=== PATIENT | male | born 1950 | race Caucasian/White ===

== ENCOUNTER → 2017-10-24 | Outpatient (CLI) | payer MEDICARE ==
[~2017-10-24] MED LIST: AMOXICILLIN500 MG PO; ASPIRIN81 M1 PO; AUGMENTIN 875 M1 TAB PO; AUGMENTIN 875875 MG PO; B-1100 MG PO; BACTROBAN OINT22 GM PO; FOLIC ACID1 MG PO; HYDROCODONE BIT1 T11 PO; LIBRIUM10 MG PO; LIBRIUM5 MG PO; LOPRESSOR25 MG PO; MOTRIN800 MG PO; MULTIPLE VITAMI1 CAP PO; NATURE'S BLEND F1 MG PO; NKHM; NORFLEX100 MG PO; PROTONIX40 MG PO; THERA TABS1 TAB PO; TRAMADOL HCL50 MG PO; VITAMIN B-11 TAB PO
--- NOTE | ~2017-10-24 | EKG ---
[place], [place] ELECTROCARDIOGRAM REPORT NAME: VALENTINE MAXWELL UNIT #: [id number] ROOM: DOCTOR: EPIPHANY DRAFT REPORT BIRTHDATE: [birth year] [facility] Test Date: 2017-10-24 Test Time: 09:19:48 Pat Name: VALENTINE MAXWELL Department: Room: Gender: M Gastroenterology Technician: : 1950 Requested By: KIEL PETTY Order Number: [id number] Reading MD: Drew Vargas MD Measurements Intervals [place] Rate: 113 P: [place]: QRS: -82 QRSD: 92 T: 67 QT: 363 QTc: 498 Interpretive Statements Atrial fibrillation Left anterior fascicular block Low voltage, extremity leads Minimal ST depression, anterolateral leads Borderline prolonged QT interval Electronically Signed On 10-24-2017 10:28:17 PDT by Drew Vargas MD CM:EKGRPT:ELECTROCARDIOGRAM REPORT 1028 KIEL PETTY MD EPIPHANY DRAFT REPORT KIEL PETTY MD
== END | disposition home or self-care (01) ==
LOC: CARD 08:47
DX: M79.89 Other specified soft tissue disorders (principal)

== ENCOUNTER → 2017-10-30 | Day surgery (SDC) | payer MEDICARE ==
[~2017-10-30] VITALS: Ht 180.3 cm; Wt 65.8 kg
[2017-10-30 09:25] VITALS: BP 117/89
[2017-10-30 09:40] VITALS: BP 124/89
[2017-10-30 09:55] VITALS: BP 122/92
== END | disposition home or self-care (01) ==
LOC: SDC 10-25 08:45
DX: M79.89 Other specified soft tissue disorders (principal); M10.9 Gout, unspecified; I48.91 Unspecified atrial fibrillation; K21.9 Gastro-esophageal reflux disease without esophagitis; Z87.11 Personal history of peptic ulcer disease; Z87.891 Personal history of nicotine dependence; Z80.9 Family history of malignant neoplasm, unspecified

== ENCOUNTER 2017-12-08 07:20 | Inpatient (IN) | payer MEDICARE ==
[~2017-12-08] VITALS: Ht 177.8 cm; Wt 60.1 kg
--- NOTE | ~2017-12-08 | O ---
[place], [place] OPERATIVE NOTE NAME: VALENTINE MAXWELL UNIT #: [id number] ROOM: 425 DOCTOR: SHAISTA FERNANDEZ,ANGELO BIRTHDATE: [birth year] DOS: 12/10/2017 GASTROENDOSCOPIC REPORT HISTORY: The patient has presented with anemia, undergoing investigation of GI bleed. PROCEDURE: Today's procedure part of investigation is colonoscopy plus photographic series. PREMEDICATION: Propofol. SCOPE: Olympus forward-viewing colonoscope 10L video. REPORT: After putting the patient in left lateral position and application of lubricant to the scope, the scope was introduced, thereafter under direct visualization passed through the length of colon without difficulty. Diverticulosis was appreciated. Base of the cecum explored, appendiceal orifice identified, photographed. Scope was gradually withdrawn from ascending, transverse, descending colon. The patient extubated, tolerated procedure well. IMPRESSION: Diverticulosis. No evidence of ischemia, no evidence of bleed from lower GI tract. PLAN AND DISCUSSION: We are going to proceed with upper GI management for peptic ulcer disease. The patient needs extensive counseling to abstain from alcohol that he is using at least a 6-pack beer per day. Thank you very much indeed. ANGELO NOONAN MD CM:OPRECORD:OPERATIVE NOTE 1758 1824 ANGELO NOONAN MD 12/10/17 1821 interface
--- NOTE | ~2017-12-08 | O ---
[place], [place] OPERATIVE NOTE NAME: VALENTINE MAXWELL UNIT #: [id number] ROOM: 425 DOCTOR: SHAISTA FERNANDEZ,ANGELO BIRTHDATE: [birth year] DOS: 12/10/2017 GASTROENDOSCOPIC REPORT HISTORY: This is a 67-year-old patient who has presented with a chief complaint of hematemesis, GI bleed, aggressive alcohol consumer, on aspirin daily as well. PROCEDURE 1: Today's procedure part of investigation is panendoscopy and colonoscopy. PREMEDICATION: Propofol. SCOPE: Olympus forward-viewing gastroscope Q10 video. REPORT: After putting the patient in left lateral position and application of lubricant to the scope, the scope was introduced, thereafter under direct visualization advanced through the length of esophagus without difficulty. Trace of esophageal varicosity was noticed. Gastric pouch was entered, hiatal hernia seen, gastritis appreciated, and a linear 2 cm x 0.5 cm width ulcer in the antrum was identified, biopsy from distant margin of which was obtained. Duodenum associated with duodenitis and a small duodenal ulcer. Photographed. Scope was gradually withdrawn. The patient extubated, tolerated the procedure well. IMPRESSION: Trace esophageal varicosity, hiatal hernia 2.5 cm in length, antral ulceration, a 2 cm x 0.5 cm small duodenal ulcer, duodenitis, gastritis. PLAN AND DISCUSSION: Protonix 40 mg daily. We are going to stop aspirin. We are going to feed him GERD diet. I am going to proceed with advising him to abstain from alcoholic beverages if possible and will evaluate colonoscopy today. ANGELO NOONAN MD CM:OPRECORD:OPERATIVE NOTE 1758 19 ANGELO NOONAN MD 12/10/171817 interface
--- NOTE | ~2017-12-08 | EKG ---
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
--- NOTE | ~2017-12-08 | CON ---
[place], [place] REPORT OF CONSULTATION NAME: VALENTINE MAXWELL UNIT #: [id number] ROOM: 425 DOCTOR: SHAISTA FERNANDEZANGELO BIRTHDATE: [birth year] DOS: 12/10/2017 GASTROENDOSCOPIC CONSULTATION REPORT HISTORY OF PRESENT ILLNESS: This is a 67-year-old gentleman who has presented with hematemesis history, abdominal pain, cramp. His H and H initially was 11 and 35, macrocytic indices, white blood cell; however, was normal. INR was 1.0. Comprehensive metabolic panel, electrolyte balanced. Liver function test, abnormal. GOT, GPT 44 and 26. Alkaline phosphatase 90, total bilirubin 1.1. Chest x-ray was obtained. Emphysematous changes were noticed. His hemoglobin A1c was 4.1. PAST MEDICAL HISTORY: Associated with GERD, essential hypertension, chronic alcoholism, atrial fibrillation, peptic ulcer disease. PAST SURGICAL HISTORY: Lipoma. SOCIAL HISTORY: Nonsmoker and heavy alcohol consumer. FAMILY HISTORY: Noncontributory. ALLERGIES: No known medications. MEDICATIONS: Medication at home 81 mg of aspirin. REVIEW OF SYSTEMS: HEENT: Denies double vision, blurred vision. RESPIRATORY: Denies acute shortness of breath, chronically short of breath, however. CARDIOVASCULAR: Denies chest pain. DIGESTIVE SYSTEM: Hematemesis and anemia. PHYSICAL EXAMINATION: VITAL SIGNS: Stable. HEENT: Head normocephalic, nontraumatic. Mouth and buccal mucosa benign. NECK: Supple, no thyromegaly, no cervical lymphadenopathy. CHEST: Symmetric anatomy, COPD pattern. HEART: Irregular irregularity consistent with atrial fibrillation. ABDOMEN: Soft. No hepato-organomegaly, slightly obese. No pulsatile mass. EXTREMITIES: No cyanosis, no pedal edema. NEUROLOGIC: Alert, oriented to time, place, person. No asterixis. No encephalopathy. 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 OTHER ADJUNCTIVE DIAGNOSES: As outlined in past medical, surgical history. [place], [place] REPORT OF CONSULTATION NAME: VALENTINE MAXWELL UNIT #: [id number] ROOM: 425 DOCTOR: SHAISTA FERNANDEZ,ANGELO BIRTHDATE: [birth year] PLAN AND DISCUSSION: EGD and colonoscopy today. ANGELO NOONAN MD CM:CONSTR:REPORT OF CONSULTATION 1736 12/11/17 0104 interface
[2017-12-08 07:24] VITALS: BP 131/83
[2017-12-08 07:50] LABS: BASO % 0.3 % (0.0-1.0); EOS # 0.1 10*3/uL (0.0-0.4); EOS % 1.2 % (1.0-4.0); HEMATOCRIT 33.5 % (42.0-52.0); HEMOGLOBIN 11.4 g/dl (14.0-18.0); LYMPH % 11.3 % (27.0-41.0); MEAN CELL VOLUME 102.4 fl (80.0-94.0); MEAN CORPUSCULAR HGB 34.9 pg (27.0-31.0); MEAN PLATELET VOLUME 11.2 fl (9.6-12.3); MONO # 1.4 10*3/uL (0.1-1.0); MONO % 16.7 % (3.0-9.0); NEUT # 6.1 10*3/uL (2.3-7.9); NEUT % 70.2 % (47.0-73.0); PLATELET COUNT AUTOMATED 180 10*3/uL (130-400); RED BLOOD COUNT 3.27 10*6/uL (4.50-5.90); RED CELL DISTRI WIDTH 11.5 % (0-14.5); WHITE BLOOD COUNT 8.6 10*3/uL (4.8-10.8)
[2017-12-08 07:59] LABS: ACT PARTIAL THROMBO TIME 26.3 SECONDS (20.8-31.5)
[2017-12-08 08:06] LABS: ALBUMIN 2.5 gm/dl (3.1-4.5); ALKALINE PHOSPHATASE 90 U/L (45-117); BUN 14 mg/dl (7-24); CHLORIDE 102 mmol/L (98-107); CREATININE 0.83 mg/dL (0.70-1.30); POTASSIUM 4.5 mmol/L (3.5-5.1); SGOT/AST 44 IU/L (3-35); SGPT/ALT 26 U/L (12-78); SODIUM 137 mmol/L (136-145); TOTAL PROTEIN 6.8 gm/dL (6.4-8.2)
[2017-12-08 08:13] LABS: ETHYL ALCOHOL < 3.0 mg/dl (<3)
[2017-12-08 08:55] VITALS: BP 118/83
[2017-12-08 12:00] VITALS: BP 140/76
[2017-12-08 16:00] VITALS: BP 130/88
[2017-12-08 20:00] VITALS: BP 106/75
[2017-12-09] VITALS: BP 113/70
[2017-12-09 07:05] LABS: HEMATOCRIT 31.8 % (42.0-52.0); HEMOGLOBIN 10.4 g/dl (14.0-18.0)
[2017-12-09 07:14] LABS: BASO % 0.4 % (0.0-1.0); EOS # 0.1 10*3/uL (0.0-0.4); EOS % 1.6 % (1.0-4.0); HEMATOCRIT 31.8 % (42.0-52.0); HEMOGLOBIN 10.4 g/dl (14.0-18.0); LYMPH # 1.3 10*3/uL (1.3-4.4); LYMPH % 26.7 % (27.0-41.0); MEAN CORPUSCULAR HGB 34.7 pg (27.0-31.0); MEAN CORPUSCULAR HGB CONC 32.7 g/dl (33.0-37.0); MONO # 0.7 10*3/uL (0.1-1.0); MONO % 14.7 % (3.0-9.0); NEUT # 2.8 10*3/uL (2.3-7.9); NEUT % 56.4 % (47.0-73.0); PLATELET COUNT AUTOMATED 151 10*3/uL (130-400); RED CELL DISTRI WIDTH 11.6 % (0-14.5); WHITE BLOOD COUNT 4.9 10*3/uL (4.8-10.8)
[2017-12-09 07:45] LABS: BUN 7 mg/dl (7-24); CHLORIDE 108 mmol/L (98-107); CHOLESTEROL 126 mg/dL (<200); CREATININE 0.72 mg/dL (0.70-1.30); FREE T4 1.39 ng/dl (0.76-1.46); HDL CHOLESTEROL 65 mg/dl (40-60); LDL CHOLESTEROL 49 mg/dL (9-159); PHOSPHOROUS 1.6 mg/dL (2.5-4.9); SODIUM 141 mmol/L (136-145); TRIGLYCERIDES 62 mg/dl (<150); VLDL CHOLESTEROL 12 mg/dL (6-40)
[2017-12-09 07:52] LABS: POTASSIUM 3.2 mmol/L (3.5-5.1)
[2017-12-09 08:00] VITALS: BP 108/68
[2017-12-09 12:00] VITALS: BP 105/62
[2017-12-09 16:00] VITALS: BP 105/76
[2017-12-09 20:00] VITALS: BP 117/75
[2017-12-10] VITALS (8 sets, daily range): BP systolic 98–131; BP diastolic 61–94
[2017-12-10 06:48] LABS: BASO % 0.5 % (0.0-1.0); EOS # 0.1 10*3/uL (0.0-0.4); EOS % 3.2 % (1.0-4.0); HEMATOCRIT 26.7 % (42.0-52.0); HEMOGLOBIN 9.1 g/dl (14.0-18.0); LYMPH # 1.2 10*3/uL (1.3-4.4); LYMPH % 28.6 % (27.0-41.0); MEAN CORPUSCULAR HGB 36.1 pg (27.0-31.0); MEAN CORPUSCULAR HGB CONC 34.1 g/dl (33.0-37.0); MEAN PLATELET VOLUME 12.1 fl (9.6-12.3); MONO # 0.7 10*3/uL (0.1-1.0); MONO % 16.5 % (3.0-9.0); NEUT # 2.1 10*3/uL (2.3-7.9); PLATELET COUNT AUTOMATED 134 10*3/uL (130-400); RED BLOOD COUNT 2.52 10*6/uL (4.50-5.90); RED CELL DISTRI WIDTH 11.4 % (0-14.5); WHITE BLOOD COUNT 4.1 10*3/uL (4.8-10.8)
[2017-12-10 07:00] LABS: BUN 3 mg/dl (7-24); CHLORIDE 111 mmol/L (98-107); CREATININE 0.63 mg/dL (0.70-1.30); SODIUM 141 mmol/L (136-145)
[2017-12-11] VITALS: BP 124/88
[2017-12-11 08:00] VITALS: BP 132/83
[2017-12-11 09:07] LABS: BASO % 0.5 % (0.0-1.0); EOS # 0.1 10*3/uL (0.0-0.4); EOS % 2.4 % (1.0-4.0); HEMATOCRIT 28.9 % (42.0-52.0); HEMOGLOBIN 9.5 g/dl (14.0-18.0); MEAN CELL VOLUME 106.6 fl (80.0-94.0); MEAN CORPUSCULAR HGB 35.1 pg (27.0-31.0); MEAN CORPUSCULAR HGB CONC 32.9 g/dl (33.0-37.0); MEAN PLATELET VOLUME 11.4 fl (9.6-12.3); MONO # 0.7 10*3/uL (0.1-1.0); MONO % 16.2 % (3.0-9.0); NEUT # 2.4 10*3/uL (2.3-7.9); NEUT % 57.7 % (47.0-73.0); PLATELET COUNT AUTOMATED 169 10*3/uL (130-400); RED BLOOD COUNT 2.71 10*6/uL (4.50-5.90); RED CELL DISTRI WIDTH 11.5 % (0-14.5); WHITE BLOOD COUNT 4.2 10*3/uL (4.8-10.8)
[2017-12-11 09:22] LABS: ALBUMIN 2.2 gm/dl (3.1-4.5); ALKALINE PHOSPHATASE 62 U/L (45-117); BUN 2 mg/dl (7-24); CHLORIDE 111 mmol/L (98-107); CREATININE 0.65 mg/dL (0.70-1.30); POTASSIUM 3.3 mmol/L (3.5-5.1); SGOT/AST 49 IU/L (3-35); SGPT/ALT 29 U/L (12-78); SODIUM 140 mmol/L (136-145)
[2017-12-11 10:43] LABS: PHOSPHOROUS 2.5 mg/dL (2.5-4.9)
[2017-12-11 12:00] VITALS: BP 113/74
[2017-12-11] MEDS ORDERED: TOPROL XL50 M1 PO (12:03)
[2017-12-11] MEDS ORDERED: XARELTO20 M1 PO (12:03)
[2017-12-11] MEDS ORDERED: VITAMIN D-32000 UNIT PO (12:03)
[2017-12-11] MEDS ORDERED: Carafate1 GM PO (12:03)
[2017-12-11] MEDS ORDERED: PROTONIX40 M1 PO (12:41)
== END 2017-12-11 13:30 | disposition home or self-care (01) | DRG 377 ==
LOC: ED 07:20 → 4E 08:35 → EDHOLD 08:35 → 4E 08:41
PROVIDERS: Emergency Medicine; Internal Medicine; Internal Medicine Gastroenterology; Registered Nurse
PROC: 0DJD8ZZ Inspection of Lower Intestinal Tract, Via Natural or Artificial Opening Endoscopic (ICD-10-PCS; principal; 2017-12-10)
PROC: 0DB68ZX Excision of Stomach, Via Natural or Artificial Opening Endoscopic, Diagnostic (ICD-10-PCS; principal; 2017-12-10)
DX: K29.71 Gastritis, unspecified, with bleeding (principal); E43 Unspecified severe protein-calorie malnutrition; I48.92 Unspecified atrial flutter; Z68.1 Body mass index [BMI] 19.9 or less, adult; K21.9 Gastro-esophageal reflux disease without esophagitis; I10 Essential (primary) hypertension; I48.91 Unspecified atrial fibrillation; K44.9 Diaphragmatic hernia without obstruction or gangrene; F10.10 Alcohol abuse, uncomplicated; R00.0 Tachycardia, unspecified; D53.9 Nutritional anemia, unspecified; R74.0 Nonspecific elevation of levels of transaminase and lactic acid dehydrogenase [LDH]; D53.1 Other megaloblastic anemias, not elsewhere classified; K27.9 Peptic ulcer, site unspecified, unspecified as acute or chronic, without hemorrhage or perforation; E83.51 Hypocalcemia; K70.9 Alcoholic liver disease, unspecified; I85.00 Esophageal varices without bleeding; K25.9 Gastric ulcer, unspecified as acute or chronic, without hemorrhage or perforation; K26.9 Duodenal ulcer, unspecified as acute or chronic, without hemorrhage or perforation; K29.80 Duodenitis without bleeding; K57.30 Diverticulosis of large intestine without perforation or abscess without bleeding; D50.0 Iron deficiency anemia secondary to blood loss (chronic); Z79.82 Long term (current) use of aspirin; Z87.11 Personal history of peptic ulcer disease; Z80.1 Family history of malignant neoplasm of trachea, bronchus and lung

== ENCOUNTER 2017-12-12 22:02 | Inpatient (IN) | payer MEDICARE ==
[~2017-12-12] VITALS: Ht 180.3 cm; Wt 50.5 kg
--- NOTE | ~2017-12-12 | EKG ---
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
--- NOTE | ~2017-12-12 | CON ---
[place], [place] REPORT OF CONSULTATION [id number] UNIT #: [id number] ROOM: 407 DOCTOR: ISABEL BARNES MDDENA BIRTHDATE: [birth year] DOS: 12/15/2017 PULMONARY CONSULTATION, EVALUATION, AND MANAGEMENT CONSULTATION REQUESTED BY: Hospitalist service. REASON FOR CONSULTATION: For the assessment of symptoms of shortness of breath. HISTORY OF PRESENT ILLNESS: This is a 67-year-old white male patient who had been recently admitted to the hospital and managed with acute GI bleeding as well as atrial fibrillation with rapid ventricular response. The patient was discharged home on 12/11/2017. He presented back to the hospital on 12/13/2017. The patient reported symptoms of having increased edema of the lower extremity, which has been occurring for the past 24 hours. Symptoms have been noted worsened. He came into the Emergency Room for further assessment. The patient does report symptoms of shortness of breath that occurs with exertion. Denies symptoms of chest pain with that. He does have a cough. The patient with a clear sputum expectoration, also reported wheezing. The patient has been admitted to the hospital for further assessment and medical management. He has been reporting reduction in respiratory symptoms since hospitalization. The CT scan of chest was obtained that was reported findings of pleural effusion. REVIEW OF SYSTEMS: CONSTITUTIONAL SYMPTOMS: Fatigue and tiredness noted without any symptoms of fever or chills. EYES: Denies any burning, redness, or tenderness. EAR, NOSE, THROAT SYMPTOMS: Denies sore throat, hoarseness, otalgia, postnasal drainage or epistaxis. CARDIOVASCULAR: Denies angina pain, edema, or pain in lower extremities. At this time, the extremity of edema, which has noted severe currently resolved completely since hospitalization in the last 48 hours. GASTROINTESTINAL: No dysphagia, nausea, vomiting, diarrhea, abdominal pain, hematemesis, melena, or hematochezia. SKIN: Denied symptoms of lesions or rashes. MUSCULOSKELETAL SYMPTOMS: Denies any other symptoms of any joint pain, redness, or tenderness. CENTRAL NERVOUS SYSTEM: No dizziness, headache, diplopia, or syncopal episodes. Remaining systems were reviewed with the patient, they were noted all negative. PAST MEDICAL HISTORY: Known with the recent hospitalization, the patient with: 1. Atrial fibrillation, rapid ventricular response. 2. Recent gastrointestinal bleeding as well. 3. Gastroesophageal reflux. 4. Atrial fibrillation, which is chronic. 5. Peptic ulcer disease. 6. Megaloblastic anemia. The patient's acute nature with recent EGD. 7. Excision of lipoma from the back. SOCIAL HISTORY: The patient lives at home. He has been noted with the use of [place], [place] REPORT OF CONSULTATION NAME: VALENTINE MAXWELL UNIT #: [id number] ROOM: 407 DOCTOR: ISABEL BARNES MD,DENA BIRTHDATE: [birth year] alcohol in the form of the beer. Noted nonsmoker. He is single, stated not . 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 FAMILY HISTORY: History about dad was unknown. Mother with complication related to lung cancer. HOME MEDICATIONS: Listed use of metoprolol tartrate, Xarelto, Carafate 2 grams at bedtime, vitamin D, and other p.r.n. medication [id number]. CURRENT MEDICATIONS: Administered noted use of allopurinol, naproxen, vitamin D, Protonix, DuoNeb, Carafate, metoprolol succinate, lorazepam, and other p.r.n. medications administered. DRUG ALLERGY HISTORY: Noted no known drug allergies. PHYSICAL EXAMINATION: GENERAL: This is a 67-year-old white male patient who has been currently noted awake and alert, sitting on his bed without acute distress. Height of 5 feet 11 inches, weight 141 pounds, BMI 19.6. VITAL SIGNS: Normal temperature, respiratory rate 18-20, heart rate of 61-109, blood pressure of 96/69-106/57. Pulse oxygen saturation on room air 98% saturation. HEENT: Examination shows loss of muscle mass for mastication. Head was atraumatic. Eyes nonicterus. CARDIOVASCULAR: S1, S2 is audible. LUNGS: Noted moderate general reduction in breath sounds without any wheeze or crackles. ABDOMEN: Soft, flat, nontender, and bowel sounds present. EXTREMITIES: At this time, no edema, clubbing, cyanosis, or muscle mass loss noted in the extremities. SKIN: No lesions or rashes. CENTRAL NERVOUS SYSTEM: Cranial nerves 2-12 intact. LABORATORY DATA: CMP this morning was noted normal electrolytes. Total protein of 5.5 and albumin of 2.0. Vancomycin trough level yesterday noted at 14. CBC that was done on 12/15/2017, WBC count 4.4, hemoglobin 9.3, hematocrit 27.0, platelet count of 211,000, MCV 103. The CBC on 12/13/2017, WBC count 5.1 at that time. B12 and folic acid level noted normal. RADIOLOGY DATA: Reviewed. The chest x-ray that was done on 12/12/2017 was reviewed, shows mild haziness in the left lower lobe. Otherwise, no acute abnormalities. Chest x-ray showed possibility to consideration of adjuvant area of atelectasis or pleural fluid. Chest x-ray that was done on 12/08/2017 shows changes of COPD and hyperinflation changes. CT scan of the chest was also done on 12/13/2017 shows no acute pulmonary infiltration visible. A small left pleural fluid was noted with an area of compression atelectasis. IMPRESSION: The lack of the IV contrast does limit the mediastinal structure review; however, there was no gross visible lymph node enlargement was seen. [place], [place] REPORT OF CONSULTATION NAME: VALENTINE MAXWELL UNIT #: [id number] ROOM: 407 DOCTOR: ISABEL BARNES MD,[facility] BIRTHDATE: [birth year] IMPRESSION: 1. The patient who has been currently admitted to the hospital with symptoms and finding noted consistent with possible recurrent congestive heart failure with a small left pleural fluid noted with area of atelectasis. There was no clinical radiologic evidence of pneumonia suspected. Etiology of pleural fluid was not noted clear, may be related to congestive heart failure with diastolic dysfunction. 2. The patient with a recent gastrointestinal bleeding, which has been treated appropriately with the medication with stable hemoglobin happen. 3. Macrocytosis was also noted leukopenia, most likely to the chronic alcohol use. PLAN OF TREATMENT: Physical examination was noted pretty benign at this time. I will order another chest x-ray done tomorrow to reassess the pleural fluid. The pleural fluid is large. Thoracentesis could be done in case of that. In the meantime, other plan of therapy and care to be continued as in progress. Usual care, other supportive plan and management of therapies. Additional changes in the treatment recommended based on progression of the illness. DENA HALL MD CM:CONSTR:REPORT OF CONSULTATION 1757 12/15/17 2130 interface
--- NOTE | ~2017-12-12 | PR ---
[place], [place] PROGRESS NOTE NAME[id number] UNIT #: [id number] ROOM: 407 DOCTOR: ISABEL BARNES MD,DENA BIRTHDATE: [birth year] DOS: 12/16/2017 PULMONARY PROGRESS NOTE SUBJECTIVE: The patient has been noted comfortable at this time. Denies symptoms of chest pain, coughing or sputum expectoration and edema of the lower extremity continued to resolve progressively. He denies symptoms of abdominal pain, nausea or vomiting. The GI symptoms has been improving. The patient was planned for a possible discharge home today. OBJECTIVE: VITAL SIGNS: Normal temperature, respiratory rate 18, heart rate 96, blood pressure 116/72. The pulse oxygen saturation of the patient on room air was 100% saturation. HEENT: Examination shows head was atraumatic. Eyes nonicterus. NECK: Supple. CARDIOVASCULAR: S1, S2 is audible. LUNGS: The patient was noted without any wheezing or crackles. Lungs were noted clear bilaterally. ABDOMEN: Soft, nontender, bowel sounds present. EXTREMITIES: Without any acute edema. DIAGNOSTIC STUDIES: Chest x-ray done this morning for the patient noted resolution of previous left lower lobe atelectasis and small pleural effusion. IMPRESSION: The patient with resolving congestive heart failure with the pleural fluid small, at this time resolved with a followup chest x-ray. PLAN OF MANAGEMENT: The patient could be discharged home on medication, diuretics and other medical management as recommended by the primary care attending. DENA HALL MD CM:RODRICK 1226 1542 DENA BARNES MD 12/16/17 1540 interface
[~2017-12-12 22:02] MED LIST changes: +Carafate1 GM PO; +PROTONIX40 M1 PO; +TOPROL XL50 M1 PO; +VITAMIN D-32000 UNIT PO; +XARELTO20 M1 PO
[2017-12-12 22:08] VITALS: BP 117/79
[2017-12-12 23:06] LABS: BASO % 0.5 % (0.0-1.0); EOS # 0.1 10*3/uL (0.0-0.4); EOS % 1.4 % (1.0-4.0); HEMATOCRIT 30.1 % (42.0-52.0); HEMOGLOBIN 10.2 g/dl (14.0-18.0); LYMPH % 16.8 % (27.0-41.0); MEAN CELL VOLUME 104.2 fl (80.0-94.0); MEAN CORPUSCULAR HGB 35.3 pg (27.0-31.0); MEAN CORPUSCULAR HGB CONC 33.9 g/dl (33.0-37.0); MONO # 1.1 10*3/uL (0.1-1.0); MONO % 18.1 % (3.0-9.0); NEUT # 3.7 10*3/uL (2.3-7.9); PLATELET COUNT AUTOMATED 204 10*3/uL (130-400); RED BLOOD COUNT 2.89 10*6/uL (4.50-5.90); RED CELL DISTRI WIDTH 11.6 % (0-14.5); WHITE BLOOD COUNT 5.9 10*3/uL (4.8-10.8)
[2017-12-12 23:24] LABS: ALBUMIN 2.5 gm/dl (3.1-4.5); ALKALINE PHOSPHATASE 80 U/L (45-117); BUN 2 mg/dl (7-24); CHLORIDE 110 mmol/L (98-107); CREATININE 0.92 mg/dL (0.70-1.30); POTASSIUM 3.8 mmol/L (3.5-5.1); SGOT/AST 55 IU/L (3-35); SGPT/ALT 36 U/L (12-78); SODIUM 140 mmol/L (136-145); TOTAL PROTEIN 6.8 gm/dL (6.4-8.2)
[2017-12-12 23:25] LABS: ACT PARTIAL THROMBO TIME 27.1 SECONDS (20.8-31.5)
[2017-12-12 23:27] LABS: TROPONIN I < 0.015 ng/ml (<0.045)
[2017-12-13] VITALS (7 sets, daily range): BP systolic 101–136; BP diastolic 64–92
[2017-12-13 06:13] LABS: HEMATOCRIT 29.8 % (42.0-52.0); HEMOGLOBIN 10.2 g/dl (14.0-18.0); MEAN CELL VOLUME 102.1 fl (80.0-94.0); MEAN CORPUSCULAR HGB 34.9 pg (27.0-31.0); MEAN CORPUSCULAR HGB CONC 34.2 g/dl (33.0-37.0); MEAN PLATELET VOLUME 11.2 fl (9.6-12.3); PLATELET COUNT AUTOMATED 203 10*3/uL (130-400); RED BLOOD COUNT 2.92 10*6/uL (4.50-5.90); RED CELL DISTRI WIDTH 11.7 % (0-14.5); WHITE BLOOD COUNT 5.1 10*3/uL (4.8-10.8)
[2017-12-13 06:51] LABS: ALBUMIN 2.4 gm/dl (3.1-4.5); ALKALINE PHOSPHATASE 75 U/L (45-117); BUN 3 mg/dl (7-24); CHLORIDE 105 mmol/L (98-107); CREATININE 0.89 mg/dL (0.70-1.30); PHOSPHOROUS 3.6 mg/dL (2.5-4.9); SGOT/AST 41 IU/L (3-35); SGPT/ALT 32 U/L (12-78); SODIUM 138 mmol/L (136-145); TOTAL PROTEIN 6.5 gm/dL (6.4-8.2)
[2017-12-13 06:52] LABS: ACT PARTIAL THROMBO TIME 26.6 SECONDS (20.8-31.5); INTERNATIONAL NORM RATIO 1.1 (2.0-3.5)
[2017-12-13 06:58] LABS: FREE T4 1.26 ng/dl (0.76-1.46)
[2017-12-13 07:18] LABS: BASOPHILS 1 % (0-1); PLATELET SUFFICIENCY NORMAL (NORMAL); ROULEAUX SLIGHT; TOTAL CELLS COUNTED 100 #CELLS
[2017-12-13 07:45] LABS: VITAMIN D, 25-HYDROXY 14.1 ng/mL (30-100)
[2017-12-14 00:30] VITALS: BP 110/56
[2017-12-14 08:00] VITALS: BP 120/84
[2017-12-14 11:00] LABS: ALBUMIN 2.1 gm/dl (3.1-4.5); ALKALINE PHOSPHATASE 63 U/L (45-117); BUN 5 mg/dl (7-24); CHLORIDE 105 mmol/L (98-107); CREATININE 1.17 mg/dL (0.70-1.30); PHOSPHOROUS 2.9 mg/dL (2.5-4.9); SGOT/AST 19 IU/L (3-35); SGPT/ALT 22 U/L (12-78); SODIUM 140 mmol/L (136-145); TOTAL PROTEIN 5.9 gm/dL (6.4-8.2)
[2017-12-14 12:00] VITALS: BP 90/60
[2017-12-14 15:59] VITALS: BP 100/68
[2017-12-14 20:00] VITALS: BP 106/57
[2017-12-15] VITALS: BP 96/69
[2017-12-15 06:00] LABS: HEMOGLOBIN 9.3 g/dl (14.0-18.0); MEAN CELL VOLUME 103.8 fl (80.0-94.0); MEAN CORPUSCULAR HGB 35.8 pg (27.0-31.0); MEAN CORPUSCULAR HGB CONC 34.4 g/dl (33.0-37.0); PLATELET COUNT AUTOMATED 211 10*3/uL (130-400); WHITE BLOOD COUNT 4.4 10*3/uL (4.8-10.8)
[2017-12-15 06:20] LABS: BUN 5 mg/dl (7-24); CHLORIDE 107 mmol/L (98-107); CREATININE 0.89 mg/dL (0.70-1.30); PHOSPHOROUS 2.3 mg/dL (2.5-4.9); SGOT/AST 14 IU/L (3-35); SGPT/ALT 20 U/L (12-78); SODIUM 139 mmol/L (136-145); TOTAL PROTEIN 5.5 gm/dL (6.4-8.2)
[2017-12-15 06:21] LABS: ALKALINE PHOSPHATASE 53 U/L (45-117)
[2017-12-15 06:25] LABS: POTASSIUM 4.5 mmol/L (3.5-5.1)
[2017-12-15 07:24] LABS: BASOPHILS 1 % (0-1); TOTAL CELLS COUNTED 100 #CELLS
[2017-12-15 07:25] LABS: PLATELET SUFFICIENCY NORMAL (NORMAL)
[2017-12-15 12:00] VITALS: BP 78/56
[2017-12-15 16:00] VITALS: BP 92/54
[2017-12-15 20:00] VITALS: BP 92/58
[2017-12-16] VITALS: BP 96/59
[2017-12-16 08:00] VITALS: BP 108/68; BP 116/72
[2017-12-16] MEDS ORDERED: METOPROLOL SUCC25 M2 PO (08:29)
[2017-12-16] MEDS ORDERED: LASIX20 MG PO (08:30)
[2017-12-16] MEDS ORDERED: ALLOPURINOL100 MG PO (08:30)
== END 2017-12-16 11:01 | disposition home or self-care (01) | DRG 308 ==
LOC: ED 22:02 → EDHOLD 12-13 00:42 → 4E 12-13 00:42
PROVIDERS: Internal Medicine; Physician Assistant; Registered Nurse
DX: I48.92 Unspecified atrial flutter (principal); E43 Unspecified severe protein-calorie malnutrition; J90 Pleural effusion, not elsewhere classified; J98.11 Atelectasis; I11.0 Hypertensive heart disease with heart failure; D53.1 Other megaloblastic anemias, not elsewhere classified; D72.810 Lymphocytopenia; E87.8 Other disorders of electrolyte and fluid balance, not elsewhere classified; K27.9 Peptic ulcer, site unspecified, unspecified as acute or chronic, without hemorrhage or perforation; F10.20 Alcohol dependence, uncomplicated; K21.9 Gastro-esophageal reflux disease without esophagitis; E83.39 Other disorders of phosphorus metabolism; E88.09 Other disorders of plasma-protein metabolism, not elsewhere classified; I50.9 Heart failure, unspecified; I48.0 Paroxysmal atrial fibrillation; I95.0 Idiopathic hypotension; R00.0 Tachycardia, unspecified; Z79.899 Other long term (current) drug therapy; Z79.82 Long term (current) use of aspirin; Z80.1 Family history of malignant neoplasm of trachea, bronchus and lung

== ENCOUNTER 2018-03-11 13:22 | Inpatient (IN) | payer MEDICARE ==
[2018-03-11] VITALS (7 sets, daily range): BP systolic 98–135; BP diastolic 66–91
[~2018-03-11] VITALS: Ht 177.8 cm; Wt 61.0 kg
--- NOTE | ~2018-03-11 | EKG ---
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
--- NOTE | ~2018-03-11 | EKG ---
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
--- NOTE | ~2018-03-11 | EKG ---
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
[~2018-03-11 13:22] MED LIST changes: +ALLOPURINOL100 MG PO; +LASIX20 MG PO; +METOPROLOL SUCC25 M2 PO
[2018-03-11 14:26] LABS: BASO % 0.6 % (0.0-1.0); EOS % 0.4 % (1.0-4.0); HEMATOCRIT 39.5 % (42.0-52.0); HEMOGLOBIN 13.3 g/dl (14.0-18.0); LYMPH # 0.6 10*3/uL (1.3-4.4); LYMPH % 11.7 % (27.0-41.0); MEAN CELL VOLUME 102.9 fl (80.0-94.0); MEAN CORPUSCULAR HGB 34.6 pg (27.0-31.0); MEAN CORPUSCULAR HGB CONC 33.7 g/dl (33.0-37.0); MEAN PLATELET VOLUME 10.6 fl (9.6-12.3); MONO # 0.4 10*3/uL (0.1-1.0); MONO % 8.9 % (3.0-9.0); NEUT # 3.7 10*3/uL (2.3-7.9); PLATELET COUNT AUTOMATED 127 10*3/uL (130-400); RED BLOOD COUNT 3.84 10*6/uL (4.50-5.90); RED CELL DISTRI WIDTH 13.2 % (0-14.5); WHITE BLOOD COUNT 4.7 10*3/uL (4.8-10.8)
[2018-03-11 14:38] LABS: ACT PARTIAL THROMBO TIME 28.6 SECONDS (20.8-31.5)
[2018-03-11 14:46] LABS: ALBUMIN 3.2 gm/dl (3.1-4.5); ALKALINE PHOSPHATASE 101 U/L (45-117); BUN 10 mg/dl (7-24); CHLORIDE 101 mmol/L (98-107); CREATININE 0.97 mg/dL (0.70-1.30); LIPASE 349 U/L (73-393); POTASSIUM 4.1 mmol/L (3.5-5.1); SGOT/AST 122 IU/L (3-35); SGPT/ALT 37 U/L (12-78); SODIUM 137 mmol/L (136-145); TOTAL PROTEIN 7.5 gm/dL (6.4-8.2)
[2018-03-11 14:49] LABS: TROPONIN I < 0.015 ng/ml (<0.045)
[2018-03-11] MEDS ORDERED: TOPROL XL50 M1 PO (20:40)
[2018-03-11 21:39] LABS: BILIRUBIN 1+ (NEGATIVE); BLOOD TRACE-INTACT (NEGATIVE); CLARITY CLEAR (CLEAR); COLOR YELLOW (YELLOW); GLUCOSE TRACE (NEGATIVE); KETONE 2+ (NEGATIVE); LEUKO ESTERASE NEGATIVE (NEGATIVE); NITRITE NEGATIVE (NEGATIVE)
[2018-03-12] VITALS: BP 129/77
[2018-03-12 06:44] LABS: MEAN CELL VOLUME 101.3 fl (80.0-94.0); MEAN CORPUSCULAR HGB 34.6 pg (27.0-31.0); MEAN CORPUSCULAR HGB CONC 34.2 g/dl (33.0-37.0); MEAN PLATELET VOLUME 11.4 fl (9.6-12.3); PLATELET COUNT AUTOMATED 105 10*3/uL (130-400); RED BLOOD COUNT 3.18 10*6/uL (4.50-5.90); RED CELL DISTRI WIDTH 13.2 % (0-14.5); WHITE BLOOD COUNT 3.7 10*3/uL (4.8-10.8)
[2018-03-12 06:55] LABS: HEMATOCRIT 32.2 % (42.0-52.0)
[2018-03-12 07:02] LABS: ALBUMIN 2.5 gm/dl (3.1-4.5); BUN 9 mg/dl (7-24); CHLORIDE 102 mmol/L (98-107); CHOLESTEROL 167 mg/dL (<200); CREATININE 0.81 mg/dL (0.70-1.30); PHOSPHOROUS 2.8 mg/dL (2.5-4.9); POTASSIUM 4.7 mmol/L (3.5-5.1); SGOT/AST 82 IU/L (3-35); SGPT/ALT 28 U/L (12-78); SODIUM 137 mmol/L (136-145)
[2018-03-12 07:06] LABS: ACT PARTIAL THROMBO TIME 44.5 SECONDS (20.8-31.5); INTERNATIONAL NORM RATIO 1.4 (2.0-3.5)
[2018-03-12 07:10] LABS: ALKALINE PHOSPHATASE 78 U/L (45-117); FREE T4 1.12 ng/dl (0.76-1.46); HDL CHOLESTEROL 106 mg/dl (40-60); LDL CHOLESTEROL 53 mg/dL (9-159); TOTAL PROTEIN 6.1 gm/dL (6.4-8.2); TRIGLYCERIDES 39 mg/dl (<150); VLDL CHOLESTEROL 8 mg/dL (6-40)
[2018-03-12 08:19] LABS: PLATELET SUFFICIENCY LOW (NORMAL); TOTAL CELLS COUNTED 100 #CELLS
[2018-03-12 09:11] LABS: VITAMIN D, 25-HYDROXY 51.8 ng/mL (30-100)
[2018-03-12 12:00] VITALS: BP 122/78
[2018-03-12 16:00] VITALS: BP 113/77
[2018-03-12 20:00] VITALS: BP 103/62
[2018-03-13] VITALS: BP 114/78
[2018-03-13 06:23] LABS: HEMATOCRIT 27.5 % (42.0-52.0); HEMOGLOBIN 9.6 g/dl (14.0-18.0); MEAN CELL VOLUME 101.9 fl (80.0-94.0); MEAN CORPUSCULAR HGB 35.6 pg (27.0-31.0); MEAN CORPUSCULAR HGB CONC 34.9 g/dl (33.0-37.0); MEAN PLATELET VOLUME 11.5 fl (9.6-12.3); PLATELET COUNT AUTOMATED 91 10*3/uL (130-400); RED CELL DISTRI WIDTH 13.2 % (0-14.5); WHITE BLOOD COUNT 4.3 10*3/uL (4.8-10.8)
[2018-03-13 06:40] LABS: ALBUMIN 2.3 gm/dl (3.1-4.5); ALKALINE PHOSPHATASE 63 U/L (45-117); BUN 4 mg/dl (7-24); CHLORIDE 105 mmol/L (98-107); PHOSPHOROUS 1.8 mg/dL (2.5-4.9); POTASSIUM 3.9 mmol/L (3.5-5.1); SGOT/AST 46 IU/L (3-35); SGPT/ALT 19 U/L (12-78); SODIUM 136 mmol/L (136-145); TOTAL PROTEIN 5.5 gm/dL (6.4-8.2)
[2018-03-13 06:45] LABS: PLATELET SUFFICIENCY LOW (NORMAL); TOTAL CELLS COUNTED 100 #CELLS
[2018-03-13 08:00] VITALS: BP 98/72
[2018-03-13 12:00] VITALS: BP 113/77
[2018-03-13] MEDS ORDERED: B12100 MC1 PO (12:28)
[2018-03-13] MEDS ORDERED: PHOS-NAK PACKE1 EACH PO (12:28)
== END 2018-03-13 16:08 | disposition home or self-care (01) | DRG 205 ==
LOC: ED 13:22 → EDHOLD 15:10 → 5E 15:10
PROVIDERS: Emergency Medicine; Internal Medicine
PROC: 4A02XM4 Measurement of Cardiac Total Activity, External Approach (ICD-10-PCS; principal; 2018-03-12)
PROC: 3E073KZ Introduction of Other Diagnostic Substance into Coronary Artery, Percutaneous Approach (ICD-10-PCS; principal; 2018-03-12)
DX: M94.0 Chondrocostal junction syndrome [Tietze] (principal); J18.9 Pneumonia, unspecified organism; E87.2 Acidosis; E46 Unspecified protein-calorie malnutrition; Z68.1 Body mass index [BMI] 19.9 or less, adult; E16.2 Hypoglycemia, unspecified; R55 Syncope and collapse; E80.6 Other disorders of bilirubin metabolism; D69.6 Thrombocytopenia, unspecified; D53.9 Nutritional anemia, unspecified; D72.819 Decreased white blood cell count, unspecified; K21.9 Gastro-esophageal reflux disease without esophagitis; K27.9 Peptic ulcer, site unspecified, unspecified as acute or chronic, without hemorrhage or perforation; I08.1 Rheumatic disorders of both mitral and tricuspid valves; I10 Essential (primary) hypertension; F10.229 Alcohol dependence with intoxication, unspecified; R60.0 Localized edema; M10.9 Gout, unspecified; R31.21 Asymptomatic microscopic hematuria; I48.2 Chronic atrial fibrillation; F41.9 Anxiety disorder, unspecified; Z87.01 Personal history of pneumonia (recurrent); Z80.1 Family history of malignant neoplasm of trachea, bronchus and lung; Z79.899 Other long term (current) drug therapy

== ENCOUNTER 2018-12-19 10:42 | Inpatient (IN) | payer OTHER ==
[~2018-12-19] VITALS: Ht 180.3 cm; Wt 55.1 kg
[~2018-12-19 10:42] MED LIST changes: +B12100 MC1 PO; +PHOS-NAK PACKE1 EACH PO
[2018-12-19 10:44] VITALS: BP 140/90
[2018-12-19 11:17] LABS: BILIRUBIN 2+ (NEGATIVE); BLOOD NEGATIVE (NEGATIVE); CLARITY CLEAR (CLEAR); COLOR YELLOW (YELLOW); GLUCOSE NEGATIVE (NEGATIVE); KETONE 2+ (NEGATIVE); LEUKO ESTERASE NEGATIVE (NEGATIVE); NITRITE NEGATIVE (NEGATIVE)
[2018-12-19 11:18] LABS: URINE AMPHETAMINES < 1000 (1000ng/ml); URINE BARBITURATES < 200 (200ng/ml); URINE BENZODIAZEPINES < 200 (200ng/ml); URINE CANNABINOIDS (THC) < 50 (50ng/ml); URINE COCAINE < 300 (300ng/ml); URINE METHADONE < 300 (300ng/ml); URINE OPIATES < 300 (300ng/ml)
[2018-12-19 11:19] LABS: URINE PHENCYCLIDINE < 25 (25ng/ml)
[2018-12-19 11:32] LABS: MUCOUS TRACE
--- NOTE | 2018-12-19 12:30 | NUR ---
PT IS RESTING IN BED AT THIS TIME ON HIS CELL PHONE. NO SIGNS OF ACUTE DISTRESS AT THIS TIME. PT STATES THAT THE PAIN MEDICATION DID NOT IMPROVE HIS PAIN.
[2018-12-19 13:14] VITALS: BP 128/80
[2018-12-19 14:22] LABS: HEMATOCRIT 34.3 % (42.0-52.0); MEAN CELL VOLUME 102.1 fl (80.0-94.0); MEAN CORPUSCULAR HGB 35.7 pg (27.0-31.0); MEAN PLATELET VOLUME 11.4 fl (9.6-12.3); PLATELET COUNT AUTOMATED 112 10*3/uL (130-400); RED BLOOD COUNT 3.36 10*6/uL (4.50-5.90); WHITE BLOOD COUNT 4.1 10*3/uL (4.8-10.8)
[2018-12-19 14:36] LABS: ACT PARTIAL THROMBO TIME 29.8 SECONDS (20.0-32.1)
[2018-12-19 14:46] LABS: BASOPHILS 2 % (0-1); PLATELET SUFFICIENCY NORMAL (NORMAL); TOTAL CELLS COUNTED 100 #CELLS
[2018-12-19 14:50] VITALS: BP 125/85; BP 128/80
[2018-12-19 14:53] LABS: ALBUMIN 2.4 gm/dl (3.1-4.5); ALKALINE PHOSPHATASE 112 U/L (45-117); BUN 8 mg/dl (7-24); CHLORIDE 101 mmol/L (98-107); CREATININE 0.72 mg/dL (0.70-1.30); POTASSIUM 4.1 mmol/L (3.5-5.1); SGOT/AST 52 IU/L (3-35); SGPT/ALT 32 U/L (12-78); SODIUM 135 mmol/L (136-145); TOTAL PROTEIN 6.6 gm/dL (6.4-8.2)
--- NOTE | 2018-12-19 14:57 | NUR ---
Time: 1449 A 68 year old MALE admitted to 5E under services of WALLY GAUTAM DO. Pt. arrived via bed from ER. Chief complaint: INFERIOR PUBIC RAMUS FRACTURE, UNABLE TO AMBULATE. GUILLAUME HAINES
--- NOTE | 2018-12-19 15:34 | NUR ---
NOTIFIED DR. MARQUEZ OF PATIENTS ARRIVAL/STATUS. WAITING FOR ORDERS.
--- NOTE | 2018-12-19 15:36 | NUR ---
PHYSICAL THERAPY Nursing screen received and chart reviewed. Please order skilled PT evaluation if decline in functional mobility presents. Thank you, Amber Rodriguez,SPT Kandace Herrera,PT,DPT
[2018-12-19 16:00] VITALS: BP 115/87
--- NOTE | 2018-12-19 16:54 | NUR ---
CALLED DR. PAT ANSWERING SERVICE SHE IS GONE FOR THE DAY CALL FOR CONSULT AFTER [address] MARQUEZ AWARE SHE IS ALREADY GONE FOR THE DAY.
[2018-12-19 20:00] VITALS: BP 111/68
--- NOTE | 2018-12-19 21:00 | NUR ---
RESTING IN BED WATCHING TV. RESPIRATIONS EASY. LUNGS DIMINISHED, CLEAR. PULSE OX 99% RA. IV FLUIDS INFUSING PER ORDER. CALL LIGHT WITHIN REACH. NO VOICED COMPLAINTS. BED ALARM MAINTAINED FOR SAFETY
--- NOTE | 2018-12-19 21:53 | NUR ---
REQUESTED AND RECEIVED NORCO PER PRN ORDER FOR COMPLAINTS OF RIGHT HIP PAIN RATING A 5. CALL LIGHT WITHIN REACH. WILL MONITOR FOR EFFECTIVENESS
--- NOTE | 2018-12-19 23:00 | NUR ---
EARLIER MEDS APPEAR EFFECTIVE. RESTING WITH EYES CLOSED. RESPIRATIONS EASY. IV FLUIDS MAINTAINED. CALL LIGHT WITHIN REACH. BED ALARM MAINTAINED FOR SAFETY
--- NOTE | 2018-12-19 23:35 | NUR ---
24 HR chart check completed.
[2018-12-20] VITALS: BP 122/81
--- NOTE | 2018-12-20 | NUR ---
SLEEPING. NO DISTRESS NOTED. RESPIRATIONS EASY. VSS. CALL LIGHT WITHIN REACH
--- NOTE | 2018-12-20 01:17 | NUR ---
MEDICATED WITH NORCO PER PRN ORDER FOR COMPLAINTS OF RIGHT HIP RATING A 5. WILL MONITOR
--- NOTE | 2018-12-20 06:00 | NUR ---
RESTED THROUGHOUT NIGHT WITH NO ACUTE DISTRESS NOTED. RESPIRATIONS EASY. IV FLUIDS MAINTAINED. CALL LIGHT WITHIN REACH. NPO STATUS MAINTAINED FOR SAFETY
[2018-12-20 06:02] LABS: HEMATOCRIT 32.6 % (42.0-52.0); HEMOGLOBIN 11.4 g/dl (14.0-18.0); MEAN CELL VOLUME 103.8 fl (80.0-94.0); MEAN CORPUSCULAR HGB 36.3 pg (27.0-31.0); MEAN PLATELET VOLUME 11.5 fl (9.6-12.3); PLATELET COUNT AUTOMATED 114 10*3/uL (130-400); RED BLOOD COUNT 3.14 10*6/uL (4.50-5.90); WHITE BLOOD COUNT 3.9 10*3/uL (4.8-10.8)
[2018-12-20 06:23] LABS: ALBUMIN 2.1 gm/dl (3.1-4.5); ALKALINE PHOSPHATASE 94 U/L (45-117); BUN 9 mg/dl (7-24); CHLORIDE 104 mmol/L (98-107); CHOLESTEROL 121 mg/dL (<200); CREATININE 0.77 mg/dL (0.70-1.30); FREE T4 1.46 ng/dl (0.76-1.46); HDL CHOLESTEROL 73 mg/dl (40-60); LDL CHOLESTEROL 37 mg/dL (9-159); PHOSPHOROUS 2.5 mg/dL (2.5-4.9); POTASSIUM 3.9 mmol/L (3.5-5.1); SGOT/AST 34 IU/L (3-35); SGPT/ALT 24 U/L (12-78); SODIUM 137 mmol/L (136-145); TOTAL PROTEIN 5.9 gm/dL (6.4-8.2); TRIGLYCERIDES 54 mg/dl (<150); VLDL CHOLESTEROL 11 mg/dL (6-40)
[2018-12-20 06:40] LABS: BASOPHILS 2 % (0-1); PLATELET SUFFICIENCY LOW (NORMAL); TOTAL CELLS COUNTED 100 #CELLS
[2018-12-20 06:59] LABS: ACT PARTIAL THROMBO TIME 33.5 SECONDS (20.0-32.1)
[2018-12-20 07:33] LABS: VITAMIN D, 25-HYDROXY 25.7 ng/mL (30-100)
[2018-12-20 08:00] VITALS: BP 118/76
--- NOTE | 2018-12-20 08:43 | NUR ---
DR PAT'S OFFICE MADE AWARE OF CONSULT
--- NOTE | 2018-12-20 08:57 | NUR ---
AROUSES EASILY & DENIES NEED FOR ANYTHING. [PAIN CONTYROLLED 05/05 (SORE) - ENCOURAGED HIM TO GET OUT OF THE BED TODAY WITH HELP. CALL BARRY WITHIN REACH
--- NOTE | 2018-12-20 10:58 | NUR ---
TYLENOL GIVEN TO HELP CONTROL PELVIC PAIN. ONCE AGAIN THE PATIENT IS ENCOURAGED TO GET UP ONLY WITH HELP
--- NOTE | 2018-12-20 11:00 | NUR ---
PHYSICAL THERAPY Physical therapy evaluation attempted. PT awaiting orthopedic consult prior to skilled PT evaluation. Will attempted PT evaluation at a later date. Thank you. Kandace Herrera,PT,DPT.
--- NOTE | 2018-12-20 11:39 | NUR ---
Occupational therapy orders received and chart reviewed. Patient is awaiting ortho consult. Will follow up with patient following consult for OT eval and POC. Thank you for the referral. Kim Melara, OTR/L
[2018-12-20 12:00] VITALS: BP 118/90
--- NOTE | 2018-12-20 12:23 | NUR ---
Clinical Appeals Rn in to talk to patient. Patient states lives at HOME with FRIEND. There are NO steps in the home. Physician: PEDRO Pharmacy: [facility] Home health services: NONE Patient's level of ADLs: INDEPENDENT Patient has working utilities: YES DME: NONE Follow-up physician's appointment after d/c: WILL BE MADE BY HOSPITALIST NURSE DIRECTOR ON DISCHARGE Does patient want to access PORTAL?: NO Discharge plan PT LIVES AT HOME WITH A FRIEND. STATES HE HAS HAD FALLS AT HOME WHEN HE IS DRINKING. TALKED WITH HIM ABOUT GOING TO A SKILLED FACILITY ON DISCHARGE AND HE STATES HE IS NOT AGAINST GOING IF HE NEEDS TOO. PT HAS [employer] INSURANCE AND THE ONLY LOCAL FACILITY THAT WILL TAKE IT IS [facility]. PT IS AGREEABLE TO GO BUT WANTS TO WAIT AND SEE WHAT DR PAT SAYS. WILL CONTINUE TO FOLLOW. WILL HAVE WILL HAVE A RIDE HOME ON DISCHARGE IF HE GOES HOME. . DANAE GUTIERREZ
--- NOTE | 2018-12-20 15:00 | NUR ---
RESTING QUIETLY WATCHING TV. PER THE PATIENT PAIN IS MINIMAL UNLESS HE TRIES TO GET UP
[2018-12-20 16:00] VITALS: BP 120/90
--- NOTE | 2018-12-20 16:49 | NUR ---
STOOD AT SIDE OF THE BED WITH 1 ASSIST (FROM SITTING TO STANDING) TWICE
[2018-12-20 20:00] VITALS: BP 114/85
--- NOTE | 2018-12-20 20:00 | NUR ---
24 HOUR CHART CHECK COMPLETE.
--- NOTE | 2018-12-20 21:04 | NUR ---
PRN NORCO ADMINISTERED PRESCRIBED FOR PT C/O BILATERAL HIP PAIN THAT WORSENS WITH MOVEMENT. WILL CONTINUE TO MONITOR AND REASSESS. NO OTHER COMPLAINTS AT THIS TIME. PT WAS ASLEEP ON ENTRANCE INTO ROOM. RESPIRATIONS EASY AND NONLABORED. CALL LIGHT IN REACH.
--- NOTE | 2018-12-20 22:12 | NUR ---
PT ASLEEP AT THIS TIME. NO SIGNS OF DISCOMFORT OR DISTRESS. WILL CONTINUE TO MONITOR.
[2018-12-21] VITALS: BP 136/75
[2018-12-21 08:00] VITALS: BP 110/70
--- NOTE | 2018-12-21 08:15 | NUR ---
UP TO CHAIR WITH 2 MINIMAL ASSIST.
[2018-12-21 12:00] VITALS: BP 112/77
[2018-12-21 16:00] VITALS: BP 113/73
[2018-12-21 20:00] VITALS: BP 92/65
--- NOTE | 2018-12-21 20:10 | NUR ---
RESTING IN BED WITH HOB SLIGHTLY ELEVATED. HEP LOCK INTACT TO LEFT ANTECUBITAL; SITE ASYMPTOMATIC. NO DISTRESS NOTED; RESPIRATIONS EASY & UNLABORED. CALL LIGHT WITHIN REACH.
[2018-12-22] VITALS: BP 130/83
--- NOTE | 2018-12-22 04:00 | NUR ---
RESTING IN BED WITH EYES CLOSED. NO DISTRESS NOTED. CALL LIGHT WITHIN REACH.
[2018-12-22 06:38] LABS: HEMATOCRIT 31.9 % (42.0-52.0); HEMOGLOBIN 11.2 g/dl (14.0-18.0); MEAN CELL VOLUME 102.2 fl (80.0-94.0); MEAN CORPUSCULAR HGB 35.9 pg (27.0-31.0); MEAN CORPUSCULAR HGB CONC 35.1 g/dl (33.0-37.0); MEAN PLATELET VOLUME 10.9 fl (9.6-12.3); PLATELET COUNT AUTOMATED 130 10*3/uL (130-400); RED BLOOD COUNT 3.12 10*6/uL (4.50-5.90); RED CELL DISTRI WIDTH 11.9 % (0-14.5)
[2018-12-22 07:21] LABS: PLATELET SUFFICIENCY NORMAL (NORMAL); TOTAL CELLS COUNTED 100 #CELLS
[2018-12-22 08:00] VITALS: BP 120/66
[2018-12-22 12:00] VITALS: BP 111/73
--- NOTE | 2018-12-22 12:00 | NUR ---
PHYSICAL THERAPY PT EVAL COMPLETED TODAY ON LEVEL 5: FULL EVAL TO FOLLOW . RECOMMEND PT WHILE HERE. PT EVAL IS MODERATE COMPLEXITY: [id number]. D/C RECOMMENDATIONS ARE FOR SNF AT THIS TIME TO REGAIN PLOF. THANK YOU FOR REFERRAL ZAHRA JOYCE PT
[2018-12-22 16:00] VITALS: BP 115/73
[2018-12-22 20:00] VITALS: BP 99/70
[2018-12-23] VITALS: BP 105/72
--- NOTE | 2018-12-23 03:18 | NUR ---
24 HR chart check completed.
--- NOTE | 2018-12-23 03:32 | NUR ---
PATIENT RESTING WITH EYES CLOSED.RESPIRATIONS EASY AND UNLABORED.NO DISTRESS NOTED. BED ALARM ON AND CALL LIGHT WITHIN REACH.
[2018-12-23 06:51] LABS: HEMATOCRIT 30.1 % (42.0-52.0); HEMOGLOBIN 10.5 g/dl (14.0-18.0); MEAN CORPUSCULAR HGB 35.6 pg (27.0-31.0); MEAN CORPUSCULAR HGB CONC 34.9 g/dl (33.0-37.0); MEAN PLATELET VOLUME 11.6 fl (9.6-12.3); PLATELET COUNT AUTOMATED 153 10*3/uL (130-400); RED BLOOD COUNT 2.95 10*6/uL (4.50-5.90); RED CELL DISTRI WIDTH 11.9 % (0-14.5); WHITE BLOOD COUNT 3.8 10*3/uL (4.8-10.8)
[2018-12-23 08:00] VITALS: BP 120/77
[2018-12-23 08:12] LABS: TOTAL CELLS COUNTED 100 #CELLS
[2018-12-23 08:16] LABS: PLATELET SUFFICIENCY NORMAL (NORMAL)
--- NOTE | 2018-12-23 09:38 | NUR ---
C/O PAIN TO NECK OF 10/02. REQUESTED NORCO GIVEN AT THIS TIME. WILL CONT TO MONTIOR. CALL LIGHT IN REACH
--- NOTE | 2018-12-23 10:38 | NUR ---
NORCO EFF PER PT. WILL CONT TO MONITOR. CALL LIGHT IN REACH.
--- NOTE | 2018-12-23 11:30 | NUR ---
Occupational Therapy evaluation completed on 5 with full eval to follow. Precautions include fall risk, WBAT RLE,new ww use, moderate complexity level 93428 via chart review, testing and and evaluation. Recommend OT per POC and short SNF stay to enable return home at [facility]. Thank you. Idalia Skelton OTR/l
--- NOTE | 2018-12-23 11:41 | NUR ---
TRAFFIC I MANAGER completed HENs. Patient requires PRECERT. -CHAR Sprague
[2018-12-23 12:00] VITALS: BP 98/59
--- NOTE | 2018-12-23 14:31 | NUR ---
PHYSICAL THERAPY PT SITTING IN RECLINER UPON ARRIVAL. PT IDENTIFIED BY NAME AND . PT REPORTS 7/10 PAIN IN PELVIS. PT AGREED TO ALL TREATMENT THIS VISIT. PT PERFORMED STS FROM RECLINER WITH GAL TO FWW. PT GAIT TRAINED 14FT X1 WITH FEE AND GAL PT IS UNSTEADY AND STATED THAT AT TIMES PTS LEG FEEL LIKE THEY COULD GIVE OUT DUE TO THE PAIN. PT PERFORMED STS TO RECLINER WITH GAL AND VC'S FOR SAFETY. PT PERFORMED STS FROM RECLINER WITH PIVIOT TRANSFER TO BED WITH GAL AND VC'S FOR SAFETY. PT PERFORMED SIT TO SUPINE WITH MINaX1 WITH BLE. PT SUPINE IN BED WITH BED ALARM ON, CALL LIGHT IN HAND AND TRAY AT PTS SIDE. PT REPORTED NO OTHER NEEDS AT TIME TIME. PT SEEN 1:1 FOR 14 MINS. CLAUDINE MCCONNELL PTA
[2018-12-23 16:00] VITALS: BP 105/62
--- NOTE | 2018-12-23 17:03 | NUR ---
WAITING FOR PRECERT FOR PT TO GO TO [facility].
[2018-12-23 20:00] VITALS: BP 116/77
[2018-12-24] VITALS (7 sets, daily range): BP systolic 78–105; BP diastolic 60–75
--- NOTE | 2018-12-24 00:04 | NUR ---
PATIENT COMPLAINS OF 8/10 LEG PAIN. MEDICATED PER ORDER. WILL CONTINUE TO [facility] FOR RELIEF. VOICES NO OTHER CONCERNS AT THIS TIME. RESTING IN BED. CALL LIGHT WITHIN REACH.
--- NOTE | 2018-12-24 01:09 | NUR ---
Patient resting quietly with no c/o discomfort. Respirations easy and regular. Vital signs stable. No overt distress. Call light within reach. HISSOM,GUILLAUME
--- NOTE | 2018-12-24 01:13 | NUR ---
24 HR chart check completed.
--- NOTE | 2018-12-24 06:35 | NUR ---
PATIENT COMPLAINS OF 8/10 LEG PAIN. MEDICATED PER ORDER. WILL CONTINUE TO [facility] FOR RELIEF. VOICES NO OTHER NEEDS/CONCERNS AT THIS TIME. CALL LIGHT WITHIN REACH. PT RESTING IN BED AT THIS TIME.
--- NOTE | 2018-12-24 06:46 | NUR ---
PATIENT RESTING IN BED. VOICES NO NEEDS/CONCERNS AT THIS TIME. RESPS EASY/NON LABORERED. CALL LIGHT WITHIN REACH.
--- NOTE | 2018-12-24 07:38 | NUR ---
NAIL MACHINE OPERATOR faxed updates to [facility]. Patient does require a PRECERT. -CHAR Sprague
[2018-12-24 07:40] LABS: BUN 6 mg/dl (7-24); CHLORIDE 104 mmol/L (98-107); CREATININE 0.77 mg/dL (0.70-1.30); POTASSIUM 3.2 mmol/L (3.5-5.1); SODIUM 137 mmol/L (136-145)
--- NOTE | 2018-12-24 08:18 | NUR ---
OT NOTE Pt was seen this A.M. 1:1 for 18 minute OT session. Upon arrival pt was supine in bed. Pt identified by name and and had complaints of 0/10 pain at rest and 7/10 in R groin with standing. While sitting EOB pt doffed and donned B socks with supervision. Sit to stand then completed from bed level with CGA and use of w/w for UE support. Functional mobility then completed into the bathroom with CGA and use of w/w. There he transferred on/off standard commode with Elana due to low surface area. Pt then stood sink side while wasing his hands with CGA for safety. Functional mobility then completed back to the recliner requiring occasional verbal prompts for walker safety. There he was left sitting upright with call light in hand, tray table in place, and bed alarm activated for safety. Continue with rec D/C plan to SNF. JAKE Sarmiento/Milagros
--- NOTE | 2018-12-24 08:25 | NUR ---
PHYSICAL THERAPY Patient seen this am 1:1 for therapy visit and was supine in bed upon therapist arrival. Patient identified by name / and reports no c/o's pain at rest. Patient transfers supine to sit EOB and sit to stand CGA x 1, while ambulating 45'x 1, use of wh walker, CGA, demonstrating antalgic gait patten secondary to increased c/o pain 7/10 in R Groin area. Patient is WBAT and fatigues quickly upon return to bedside chair. Patient needed v/c to improve safe sequence during 90 /180 turns and remained in bedside chair with call light, tray table, telephone and body alarm. Will continue per POC as tolerated, total treatment time 14 minutes. Stew Chambers, METAL DRESSER tolerated, total treatment time
--- NOTE | 2018-12-24 09:20 | NUR ---
BP 78/60 DR RODRIGUES NOTIFIED. ORDER TO RECHECK IN ONE HOUR. PATIENT ASYMPTOMATIC, UP SITTING IN CHAIR.
--- NOTE | 2018-12-24 10:30 | NUR ---
BP RECHECKED . DR RODRIGUES NOTIFIED. NO NEW ORDERS.
--- NOTE | 2018-12-24 14:26 | NUR ---
PT IS WAITING ON PRECERT FOR [facility]. WILL CONTINUE TO FOLOW.
--- NOTE | 2018-12-24 15:19 | NUR ---
PHYSICAL THERAPY CO-SIGN I approve of the Physical Therapy notes written above. JANA GRAHAM PT, DPT
--- NOTE | 2018-12-24 17:57 | NUR ---
C/O PAIN TO NECK AND R HIP OF 11/02. NORCO GIVEN AT THIS TIME. WILL CONT TO MONITOR. CALL LIGHT IN REACH.
[2018-12-25] VITALS: BP 105/76
[2018-12-25 06:42] LABS: BUN 7 mg/dl (7-24); CHLORIDE 104 mmol/L (98-107); CREATININE 0.79 mg/dL (0.70-1.30); SODIUM 136 mmol/L (136-145)
[2018-12-25 08:00] VITALS: BP 100/62
--- NOTE | 2018-12-25 08:13 | NUR ---
ICU RN faxed updates to [facility]. Patient requires a PRECERT. -CHAR Sprague
--- NOTE | 2018-12-25 10:00 | NUR ---
PHYSICAL THERAPY Patient seen this am 1:1 for therapy visit and was resting supine in bed upon therapist arrival. Patient identified by name / and reports no c/o's of pain at this time, only a little mild R hip stiffness. Patient transfers supine to sit EOB and sit to stand CGA x 1, while ambulating 45'x 1, then additional 15'x 1, use of wh walker, CGA, demonstrating slow, steady miriam. Patient still remains cautious during all 90/180 turns and fatigues quickly upon return to bedside chair. Patient remained in chair with call light, tray table, cell phone and body alarm for safety. Will continue per POC as tolerated, total treatment time 14 minutes. Stew Chambers, FAST FOOD DELIVERY DRIVER
--- NOTE | 2018-12-25 10:15 | NUR ---
OT NOTE Pt was seen this A.M. 1:1 for 15 minute OT session. Upon arrival pt was supine in bed. Pt identified by name and and had no complaints at this time. Pt transferred supine to sit EOB with SBA. While sitting EOB pt donned B socks with SBA. Sit to stand completed from bed level with CGA and use of w/w for UE support. Functional mobility completed into the bathroom with CGA and occasional verbal prompts for walker safety. Pt transferred on to standard commode with CGA and off with Elana due to low surface. Then challenged pt's dynamic standing tolerance needed for increased I in self care tasks and functional transfers, pt was able to tolerate aprox 3 minutes before sitting due to fatigue. Pt was left sitting upright in the recliner with call light in hand, tray table in place, and phone in reach. Continue with rec D/C plan to SNF. JAKE Sarmiento/Milagros
[2018-12-25 12:00] VITALS: BP 100/76
--- NOTE | 2018-12-25 15:31 | NUR ---
WAITING FOR PRECERT FOR PT TO GO TO [facility]. WILL CONTINUE TO FOLLOW.
[2018-12-25 16:00] VITALS: BP 90/64
[2018-12-25 20:00] VITALS: BP 80/54
[2018-12-26] VITALS: BP 94/65
[2018-12-26 08:00] VITALS: BP 110/70
--- NOTE | 2018-12-26 08:25 | NUR ---
PHYSICAL THERAPY Patient seen this am 1:1 for therapy visit and was supine in bed following breakfast, upon therapist arrival. Patient identified by name / and was very pleasant / talkative this morning. Patient transfers supine to sit EOB and sit to stand, CGA, ambulating with use of wh walker, 40'x 2, CGA, while demonstrating a little impulsive behavior with increased gait velocity. Patient reports no c/o's pain, other than only mild R hip stiffness and retruned to supine in bed. Patient remained in bed with call light, tray table, telephone and bed alarm for safety. Will continue per POC as tolerated, total treatment time 16 minutes. Stew Chambers, CONTRACT ATTORNEY
--- NOTE | 2018-12-26 09:09 | NUR ---
Auth has been obtained and [facility]. -CHAR Sprague
--- NOTE | 2018-12-26 10:41 | NUR ---
LIBRARY SERIALS ASSISTANT spoke with the patient about approval from [facility] and when medically stable will be able to go. CHAR faxed updates to [facility]. -CHAR Sprague
--- NOTE | 2018-12-26 10:59 | NUR ---
Per request of patient, spoke with Alexandra case management and notified her that patient does have a ride to [facility].
[2018-12-26] MEDS ORDERED: PHARMASSURE FO0.4 MG PO (11:22)
[2018-12-26] MEDS ORDERED: HYDROCODONE-AC1 EAC1 PO (11:22)
--- NOTE | 2018-12-26 12:41 | NUR ---
GRADUATE ASSISTANT faxed discharge orders to [facility]. -CHAR Sprague
--- NOTE | 2018-12-26 14:03 | NUR ---
Message left on supervisors voice mail to call back for nurse to nurse report. Awaiting response.
--- NOTE | 2018-12-26 14:15 | NUR ---
Discharge instructions reviewed with patient/family. Patient receptive and verbalizes understanding. Follow-up care arranged. Written instructions given to patient/family. Patient was educated on new prescriptions and was given discharge packet to give to [facility]. He was wheeled from unit by staff member with all personal belongings accounted for. He was transported to [facility] by car. WILBERTO NUNEZ
--- NOTE | 2018-12-26 16:02 | NUR ---
PHYSICAL THERAPY CO-SIGN I approve of the Physical Therapy notes written above. JANA GRAHAM PT,DPT
--- NOTE | 2018-12-27 13:04 | NUR ---
OCCUPATIONAL THERAPY CO-SIGN I approve of the Occupational Therapy notes written above. MAXINE LUNSFORD OTR/Milagros
== END 2018-12-26 14:15 | disposition other institution (70) | DRG 536 ==
LOC: ED 10:42 → 5E 13:57 → EDHOLD 13:57 → 5E 14:21
PROVIDERS: Internal Medicine; Physician Assistant; ADMIT Internal Medicine
DX: S32.591A Other specified fracture of right pubis, initial encounter for closed fracture (principal); E44.0 Moderate protein-calorie malnutrition; F10.239 Alcohol dependence with withdrawal, unspecified; Z68.1 Body mass index [BMI] 19.9 or less, adult; R79.1 Abnormal coagulation profile; I10 Essential (primary) hypertension; D72.810 Lymphocytopenia; D53.9 Nutritional anemia, unspecified; D69.6 Thrombocytopenia, unspecified; K21.9 Gastro-esophageal reflux disease without esophagitis; M10.9 Gout, unspecified; R74.0 Nonspecific elevation of levels of transaminase and lactic acid dehydrogenase [LDH]; I48.91 Unspecified atrial fibrillation; W18.30XA Fall on same level, unspecified, initial encounter; Y93.89 Activity, other specified; Y92.89 Other specified places as the place of occurrence of the external cause; Y99.8 Other external cause status; Z80.1 Family history of malignant neoplasm of trachea, bronchus and lung; Z91.81 History of falling; Z87.01 Personal history of pneumonia (recurrent); Z87.11 Personal history of peptic ulcer disease; Z79.899 Other long term (current) drug therapy

== ENCOUNTER 2019-03-15 13:15 | Emergency (ER) | payer OTHER ==
[~2019-03-15] VITALS: Ht 179.1 cm; Wt 61.2 kg
[~2019-03-15 13:15] MED LIST changes: +HYDROCODONE-AC1 EAC1 PO; +PHARMASSURE FO0.4 MG PO
[2019-03-15 14:27] LABS: ALKALINE PHOSPHATASE 76 U/L (45-117); BUN 20 mg/dl (7-24); CHLORIDE 80 mmol/L (98-107); CREATININE 1.39 mg/dL (0.70-1.30); POTASSIUM 3.8 mmol/L (3.5-5.1); SGOT/AST 26 IU/L (3-35); SGPT/ALT 16 U/L (12-78)
[2019-03-15 14:29] LABS: SODIUM 115 mmol/L (136-145)
[2019-03-15 14:47] LABS: HEMATOCRIT 29.9 % (42.0-52.0); HEMOGLOBIN 11.1 g/dl (14.0-18.0); MEAN CORPUSCULAR HGB 34.9 pg (27.0-31.0); MEAN CORPUSCULAR HGB CONC 37.1 g/dl (33.0-37.0); MEAN PLATELET VOLUME 12.5 fl (9.6-12.3); PLATELET COUNT AUTOMATED 159 10*3/uL (130-400); RED BLOOD COUNT 3.18 10*6/uL (4.50-5.90); RED CELL DISTRI WIDTH 11.9 % (0-14.5); WHITE BLOOD COUNT 11.6 10*3/uL (4.8-10.8)
[2019-03-15 14:54] LABS: TOTAL CELLS COUNTED 100 #CELLS
[2019-03-15 14:55] LABS: PLATELET SUFFICIENCY NORMAL (NORMAL)
== END 2019-03-15 19:39 | disposition short-term general hospital (02) ==
LOC: ED 13:15
PROVIDERS: Emergency Medicine
DX: S22.42XA Multiple fractures of ribs, left side, initial encounter for closed fracture (principal); R42 Dizziness and giddiness; H53.8 Other visual disturbances; R53.1 Weakness; R07.9 Chest pain, unspecified; I10 Essential (primary) hypertension; M10.9 Gout, unspecified; E11.9 Type 2 diabetes mellitus without complications; I48.91 Unspecified atrial fibrillation; E87.1 Hypo-osmolality and hyponatremia; W19.XXXA Unspecified fall, initial encounter; Y93.89 Activity, other specified; Y92.89 Other specified places as the place of occurrence of the external cause; Y99.8 Other external cause status

== ENCOUNTER 2019-04-03 09:11 | Emergency (ER) | payer OTHER ==
[~2019-04-03] VITALS: Ht 177.8 cm; Wt 63.5 kg
[2019-04-03 10:37] LABS: BASO # 0.1 10*3/uL (0.0-0.1); BASO % 0.7 % (0.0-1.0); EOS # 0.3 10*3/uL (0.0-0.4); EOS % 4.9 % (1.0-4.0); HEMATOCRIT 29.6 % (42.0-52.0); HEMOGLOBIN 9.9 g/dl (14.0-18.0); LYMPH # 1.1 10*3/uL (1.3-4.4); LYMPH % 16.1 % (27.0-41.0); MEAN CELL VOLUME 96.1 fl (80.0-94.0); MEAN CORPUSCULAR HGB 32.1 pg (27.0-31.0); MEAN CORPUSCULAR HGB CONC 33.4 g/dl (33.0-37.0); MEAN PLATELET VOLUME 10.9 fl (9.6-12.3); MONO % 14.2 % (3.0-9.0); NEUT # 4.4 10*3/uL (2.3-7.9); NEUT % 63.8 % (47.0-73.0); PLATELET COUNT AUTOMATED 593 10*3/uL (130-400); RED BLOOD COUNT 3.08 10*6/uL (4.50-5.90); RED CELL DISTRI WIDTH 13.4 % (0-14.5)
[2019-04-03 10:45] LABS: BILIRUBIN NEGATIVE (NEGATIVE); BLOOD NEGATIVE (NEGATIVE); CLARITY CLEAR (CLEAR); COLOR YELLOW (YELLOW); GLUCOSE NEGATIVE (NEGATIVE); KETONE NEGATIVE (NEGATIVE); LEUKO ESTERASE NEGATIVE (NEGATIVE); NITRITE NEGATIVE (NEGATIVE); PH 6.5 (5.0-9.0); UROBILINOGEN 0.2 E.U./dl (0.2-1.0)
[2019-04-03 10:48] LABS: ACT PARTIAL THROMBO TIME 33.8 SECONDS (20.0-32.1)
[2019-04-03 10:54] LABS: ALBUMIN 2.2 gm/dl (3.1-4.5); ALKALINE PHOSPHATASE 80 U/L (45-117); BUN 12 mg/dl (7-24); CHLORIDE 102 mmol/L (98-107); CREATININE 0.89 mg/dL (0.70-1.30); LIPASE 265 U/L (73-393); SGOT/AST 16 IU/L (3-35); SGPT/ALT 17 U/L (12-78); SODIUM 135 mmol/L (136-145); TOTAL PROTEIN 6.5 gm/dL (6.4-8.2)
[2019-04-03 10:55] LABS: TROPONIN I < 0.015 ng/ml (<0.045)
[2019-04-03 11:02] LABS: BACTERIA TRACE; EPITHELIAL CELLS 0-2; RBC 0-2 rbc/hpf (0-2); WBC 0-2 wbc/hpf (0-5)
== END 2019-04-03 12:04 | disposition home or self-care (01) ==
LOC: ED 09:11
PROVIDERS: Emergency Medicine
DX: I95.9 Hypotension, unspecified (principal); I48.91 Unspecified atrial fibrillation; I10 Essential (primary) hypertension; K21.9 Gastro-esophageal reflux disease without esophagitis; M10.9 Gout, unspecified

== ENCOUNTER 2020-09-03 09:05 | Inpatient (IN) | payer OTHER ==
[2020-09-03] VITALS (19 sets, daily range): BP systolic 43–125; BP diastolic 17–86
[~2020-09-03] VITALS: Wt 58.1 kg
[2020-09-03 10:23] LABS: BASO % 0.1 % (0.0-1.0); EOS % 0.1 % (1.0-4.0); HEMATOCRIT 26.7 % (42.0-52.0); LYMPH # 1.3 10*3/uL (1.3-4.4); LYMPH % 14.7 % (27.0-41.0); MEAN CELL VOLUME 104.7 fl (80.0-94.0); MEAN CORPUSCULAR HGB 34.9 pg (27.0-31.0); MEAN CORPUSCULAR HGB CONC 33.3 g/dl (33.0-37.0); MEAN PLATELET VOLUME 10.9 fl (9.6-12.3); MONO % 11.4 % (3.0-9.0); NEUT # 6.6 10*3/uL (2.3-7.9); NEUT % 73.3 % (47.0-73.0); PLATELET COUNT AUTOMATED 215 10*3/uL (130-400); RED BLOOD COUNT 2.55 10*6/uL (4.50-5.90); RED CELL DISTRI WIDTH 11.9 % (0-14.5)
[2020-09-03 10:36] LABS: ACT PARTIAL THROMBO TIME 35.5 SECONDS (20.0-32.1); INTERNATIONAL NORM RATIO 1.7 (2.0-3.5)
[2020-09-03 10:39] LABS: ALBUMIN 2.5 gm/dl (3.1-4.5); ALKALINE PHOSPHATASE 73 U/L (45-117); BUN 21 mg/dl (7-24); CHLORIDE 104 mmol/L (98-107); CPK 42 U/L (39-308); CREATININE 0.96 mg/dL (0.70-1.30); POTASSIUM 4.7 mmol/L (3.5-5.1); SGOT/AST 31 IU/L (3-35); SGPT/ALT 18 U/L (12-78); SODIUM 137 mmol/L (136-145)
[2020-09-03 10:45] LABS: ETHYL ALCOHOL < 3.0 mg/dl (<3); TROPONIN I < 0.015 ng/ml (<0.045)
[2020-09-03 12:30] LABS: HEMATOCRIT 22.8 % (42.0-52.0)
[2020-09-03] MEDS ORDERED: Lopressor25 MG PO (13:20)
[2020-09-03] MEDS ORDERED: PANTOPRAZOLE SO40 MG PO (13:21)
[2020-09-03 18:03] LABS: BILIRUBIN Negative (Negative); BLOOD 2+ (Negative); CLARITY Clear (Clear); COLOR Yellow (Yellow); GLUCOSE Negative (Negative); KETONE 1+ (Negative); LEUKO ESTERASE Negative (Negative); NITRITE Negative (Negative); PH 6.5 (4.5-8.0); SPECIFIC GRAVITY 1.015 (1.001-1.030)
[2020-09-03 18:21] LABS: COARSE GRANULAR CAST 0-2; FINE GRANULAR CAST 0-2
[2020-09-03 21:48] LABS: HEMATOCRIT 19.5 % (42.0-52.0)
[2020-09-03 21:56] LABS: IRON 144 ug/dL (65-175); TOTAL IRON BINDING CAPACITY 205 ug/dl (250-450)
[2020-09-04] VITALS (14 sets, daily range): BP systolic 96–118; BP diastolic 59–79
[2020-09-04 00:01] LABS: FERRITIN 127.9 ng/mL (22.0-322.0)
[2020-09-04 07:59] LABS: HEMATOCRIT 27.5 % (42.0-52.0)
[2020-09-04 09:18] LABS: ALBUMIN 2.3 gm/dl (3.1-4.5); ALKALINE PHOSPHATASE 60 U/L (45-117); BUN 17 mg/dl (7-24); CHLORIDE 112 mmol/L (98-107); CREATININE 0.78 mg/dL (0.70-1.30); LIPASE 483 U/L (73-393); POTASSIUM 3.8 mmol/L (3.5-5.1); SGOT/AST 43 IU/L (3-35); SGPT/ALT 16 U/L (12-78); SODIUM 140 mmol/L (136-145); TOTAL PROTEIN 5.2 gm/dL (6.4-8.2)
[2020-09-04 17:54] LABS: HEMATOCRIT 26.1 % (42.0-52.0)
[2020-09-04] MEDS ORDERED: ALLOPURINOL100 MG PO (23:45)
[2020-09-05] VITALS: BP 113/82
[2020-09-05 04:00] VITALS: BP 114/71
[2020-09-05 05:54] LABS: HEMATOCRIT 27.6 % (42.0-52.0)
[2020-09-05 08:00] VITALS: BP 118/82
[2020-09-05 12:00] VITALS: BP 104/78
[2020-09-05 16:00] VITALS: BP 122/82
[2020-09-05 18:17] LABS: HEMATOCRIT 28.2 % (42.0-52.0)
[2020-09-05 20:00] VITALS: BP 124/83
[2020-09-06] VITALS: BP 130/80
[2020-09-06 04:00] VITALS: BP 129/85
[2020-09-06 06:04] LABS: CHLORIDE 110 mmol/L (98-107); CREATININE 0.61 mg/dL (0.70-1.30); POTASSIUM 3.3 mmol/L (3.5-5.1); SODIUM 136 mmol/L (136-145)
[2020-09-06 06:07] LABS: BUN 6 mg/dl (7-24)
[2020-09-06 06:32] LABS: BASO % 0.2 % (0.0-1.0); EOS # 0.2 10*3/uL (0.0-0.4); EOS % 2.6 % (1.0-4.0); HEMATOCRIT 26.3 % (42.0-52.0); LYMPH # 1.1 10*3/uL (1.3-4.4); LYMPH % 18.5 % (27.0-41.0); MEAN CELL VOLUME 99.6 fl (80.0-94.0); MEAN CORPUSCULAR HGB 33.7 pg (27.0-31.0); MEAN CORPUSCULAR HGB CONC 33.8 g/dl (33.0-37.0); MEAN PLATELET VOLUME 11.2 fl (9.6-12.3); MONO # 0.7 10*3/uL (0.1-1.0); NEUT # 4.1 10*3/uL (2.3-7.9); NEUT % 66.4 % (47.0-73.0); PLATELET COUNT AUTOMATED 134 10*3/uL (130-400); RED BLOOD COUNT 2.64 10*6/uL (4.50-5.90); RED CELL DISTRI WIDTH 14.5 % (0-14.5); WHITE BLOOD COUNT 6.1 10*3/uL (4.8-10.8)
[2020-09-06 08:00] VITALS: BP 130/78
[2020-09-06 12:00] VITALS: BP 134/84
[2020-09-06 16:00] VITALS: BP 130/84
[2020-09-06 20:06] VITALS: BP 140/86
[2020-09-07] VITALS: BP 106/75
[2020-09-07] MEDS ORDERED: PANTOPRAZOLE SO40 MG PO (07:09)
[2020-09-07] MEDS ORDERED: Carafate1 GM PO (07:09)
[2020-09-07] MEDS ORDERED: FERROUS SULFAT325 MG PO (07:13)
[2020-09-07 08:00] VITALS: BP 116/69
[2020-09-07 08:41] LABS: HEMATOCRIT 27.7 % (42.0-52.0); MEAN CELL VOLUME 100.7 fl (80.0-94.0); MEAN CORPUSCULAR HGB 34.2 pg (27.0-31.0); MEAN CORPUSCULAR HGB CONC 33.9 g/dl (33.0-37.0); MEAN PLATELET VOLUME 11.2 fl (9.6-12.3); PLATELET COUNT AUTOMATED 168 10*3/uL (130-400); RED BLOOD COUNT 2.75 10*6/uL (4.50-5.90); RED CELL DISTRI WIDTH 14.2 % (0-14.5)
[2020-09-07 09:00] LABS: ATYPICAL LYMPHS 1 % (0-0); PLATELET SUFFICIENCY NORMAL (NORMAL); POLYCHROMASIA SLIGHT; TOTAL CELLS COUNTED 100 #CELLS
[2020-09-07 09:15] LABS: BUN 5 mg/dl (7-24); CHLORIDE 110 mmol/L (98-107); CREATININE 0.59 mg/dL (0.70-1.30); POTASSIUM 3.5 mmol/L (3.5-5.1); SODIUM 136 mmol/L (136-145)
== END 2020-09-07 14:04 | disposition home health service (06) | DRG 377 ==
LOC: ED 09:05 → EDHOLD 12:09 → ICCU 12:09 → 4E 09-06 20:01
PROVIDERS: Emergency Medicine; ADMIT Internal Medicine; ATTEND Internal Medicine
PROC: 30233N1 Transfusion of Nonautologous Red Blood Cells into Peripheral Vein, Percutaneous Approach (ICD-10-PCS; principal; 2020-09-03)
PROC: 0DJ08ZZ Inspection of Upper Intestinal Tract, Via Natural or Artificial Opening Endoscopic (ICD-10-PCS; 2020-09-03)
DX: K29.21 Alcoholic gastritis with bleeding (principal); K85.20 Alcohol induced acute pancreatitis without necrosis or infection; D62 Acute posthemorrhagic anemia; I48.21 Permanent atrial fibrillation; E44.0 Moderate protein-calorie malnutrition; I48.20 Chronic atrial fibrillation, unspecified; R65.10 Systemic inflammatory response syndrome (SIRS) of non-infectious origin without acute organ dysfunction; K70.9 Alcoholic liver disease, unspecified; D50.9 Iron deficiency anemia, unspecified; E87.6 Hypokalemia; F10.20 Alcohol dependence, uncomplicated; Z80.1 Family history of malignant neoplasm of trachea, bronchus and lung

== ENCOUNTER 2020-09-28 10:29 | Emergency (ER) | payer OTHER ==
[~2020-09-28 10:29] MED LIST changes: +FERROUS SULFAT325 MG PO; +Lopressor25 MG PO; +PANTOPRAZOLE SO40 MG PO
[2020-09-28 11:14] LABS: BASO % 0.6 % (0.0-1.0); EOS # 0.1 10*3/uL (0.0-0.4); EOS % 2.6 % (1.0-4.0); HEMATOCRIT 36.5 % (42.0-52.0); LYMPH # 1.3 10*3/uL (1.3-4.4); MEAN CELL VOLUME 99.7 fl (80.0-94.0); MEAN CORPUSCULAR HGB 33.1 pg (27.0-31.0); MEAN CORPUSCULAR HGB CONC 33.2 g/dl (33.0-37.0); MEAN PLATELET VOLUME 10.6 fl (9.6-12.3); MONO # 0.8 10*3/uL (0.1-1.0); MONO % 16.1 % (3.0-9.0); NEUT # 2.8 10*3/uL (2.3-7.9); NEUT % 55.5 % (47.0-73.0); PLATELET COUNT AUTOMATED 224 10*3/uL (130-400); RED BLOOD COUNT 3.66 10*6/uL (4.50-5.90); RED CELL DISTRI WIDTH 13.9 % (0-14.5); WHITE BLOOD COUNT 5.1 10*3/uL (4.8-10.8)
[2020-09-28 11:31] LABS: ALBUMIN 2.3 gm/dl (3.1-4.5); ALKALINE PHOSPHATASE 118 U/L (45-117); BUN 8 mg/dl (7-24); CHLORIDE 108 mmol/L (98-107); POTASSIUM 4.2 mmol/L (3.5-5.1); SGOT/AST 33 IU/L (3-35); SGPT/ALT 14 U/L (12-78); SODIUM 140 mmol/L (136-145); TOTAL PROTEIN 7.3 gm/dL (6.4-8.2)
[2020-09-28 11:32] LABS: TROPONIN I < 0.015 ng/ml (<0.045)
[2020-09-28 12:29] LABS: BILIRUBIN Negative (Negative); BLOOD Negative (Negative); CLARITY Clear (Clear); COLOR Yellow (Yellow); GLUCOSE Negative (Negative); KETONE Negative (Negative); LEUKO ESTERASE Trace (Negative); NITRITE Negative (Negative); SPECIFIC GRAVITY 1.015 (1.001-1.030)
[2020-09-28 12:46] LABS: BACTERIA TRACE; EPITHELIAL CELLS 0-2
[2020-09-28] MEDS ORDERED: CEFUROXIME AXE500 MG PO (14:34)
== END 2020-09-28 15:00 | disposition home health service (06) ==
LOC: ED 10:29
PROVIDERS: Family Medicine
DX: N39.0 Urinary tract infection, site not specified (principal); Z79.899 Other long term (current) drug therapy; Z98.890 Other specified postprocedural states

== ENCOUNTER → 2023-02-01 | Outpatient (CLI) | payer OTHER ==
[~2023-02-01] MED LIST changes: +CEFUROXIME AXE500 MG PO; +MAGNESIUM OXID400 MG PO; +XARE20MG PO
[2023-02-01 12:10] LABS: BASO % 0.3 % (0.0-1.0); EOS # 0.1 10*3/uL (0.0-0.4); EOS % 0.6 % (1.0-4.0); HEMATOCRIT 23.8 % (42.0-52.0); LYMPH # 1.4 10*3/uL (1.3-4.4); LYMPH % 10.1 % (27.0-41.0); MEAN CELL VOLUME 79.6 fl (80.0-94.0); MEAN CORPUSCULAR HGB 25.1 pg (27.0-31.0); MEAN CORPUSCULAR HGB CONC 31.5 g/dl (33.0-37.0); MEAN PLATELET VOLUME 9.6 fl (9.6-12.3); MONO # 1.3 10*3/uL (0.1-1.0); MONO % 9.1 % (3.0-9.0); NEUT # 11.1 10*3/uL (2.3-7.9); NEUT % 79.4 % (47.0-73.0); PLATELET COUNT AUTOMATED 335 10*3/uL (130-400); RED BLOOD COUNT 2.99 10*6/uL (4.50-5.90); RED CELL DISTRI WIDTH 19.1 % (0-14.5)
[2023-02-01 12:34] LABS: BUN 8 mg/dl (9-23); CHLORIDE 101 mmol/L (98-107); POTASSIUM 3.3 mmol/L (3.4-5.1)
== END | disposition home or self-care (01) ==
LOC: LAB 11:23
PROVIDERS: Registered Nurse; ATTEND Internal Medicine
DX: R55 Syncope and collapse (principal); D64.9 Anemia, unspecified

== ENCOUNTER 2023-03-04 16:57 | Emergency (ER) | payer OTHER ==
[~2023-03-04] VITALS: Ht 177.8 cm; Wt 61.2 kg
[2023-03-04 18:22] LABS: BASO % 0.3 % (0.0-1.0); EOS % 0.5 % (1.0-4.0); HEMATOCRIT 26.9 % (42.0-52.0); LYMPH # 0.8 10*3/uL (1.3-4.4); LYMPH % 12.9 % (27.0-41.0); MEAN CELL VOLUME 84.3 fl (80.0-94.0); MEAN CORPUSCULAR HGB 26.6 pg (27.0-31.0); MEAN CORPUSCULAR HGB CONC 31.6 g/dl (33.0-37.0); MEAN PLATELET VOLUME 10.8 fl (9.6-12.3); MONO # 0.7 10*3/uL (0.1-1.0); MONO % 12.4 % (3.0-9.0); NEUT # 4.4 10*3/uL (2.3-7.9); NEUT % 73.6 % (47.0-73.0); PLATELET COUNT AUTOMATED 216 10*3/uL (130-400); RED BLOOD COUNT 3.19 10*6/uL (4.50-5.90); RED CELL DISTRI WIDTH 22.5 % (0-14.5)
[2023-03-04 18:42] LABS: ALKALINE PHOSPHATASE 112 U/L (46-116); BUN 7 mg/dl (9-23); CHLORIDE 104 mmol/L (98-107); POTASSIUM 3.6 mmol/L (3.4-5.1); SGPT/ALT 9 U/L (5-49); TOTAL PROTEIN 7.2 gm/dL (6.0-8.0)
[2023-03-04 18:42] LABS: ACT PARTIAL THROMBO TIME 28.5 SECONDS (20.0-32.1)
[2023-03-04 18:49] LABS: ETHYL ALCOHOL < 3.0 mg/dl (<3); LIPASE 1162 U/L (12-53)
[2023-03-05 07:21] LABS: BASO % 0.4 % (0.0-1.0); EOS # 0.1 10*3/uL (0.0-0.4); EOS % 1.4 % (1.0-4.0); HEMATOCRIT 22.4 % (42.0-52.0); LYMPH # 1.1 10*3/uL (1.3-4.4); LYMPH % 21.6 % (27.0-41.0); MEAN CELL VOLUME 86.5 fl (80.0-94.0); MEAN CORPUSCULAR HGB 27.4 pg (27.0-31.0); MEAN CORPUSCULAR HGB CONC 31.7 g/dl (33.0-37.0); MEAN PLATELET VOLUME 10.9 fl (9.6-12.3); MONO # 0.9 10*3/uL (0.1-1.0); MONO % 17.2 % (3.0-9.0); NEUT % 59.2 % (47.0-73.0); RED BLOOD COUNT 2.59 10*6/uL (4.50-5.90); RED CELL DISTRI WIDTH 22.8 % (0-14.5)
[2023-03-05 07:22] LABS: PLATELET COUNT AUTOMATED 144 10*3/uL (130-400)
[2023-03-05 07:23] LABS: ACT PARTIAL THROMBO TIME 30.4 SECONDS (20.0-32.1)
[2023-03-05 07:33] LABS: ALKALINE PHOSPHATASE 91 U/L (46-116); CHLORIDE 108 mmol/L (98-107); POTASSIUM 3.7 mmol/L (3.4-5.1); TOTAL PROTEIN 5.8 gm/dL (6.0-8.0)
[2023-03-05 07:39] LABS: BUN < 5 mg/dl (9-23); SGPT/ALT < 7 U/L (5-49)
[2023-03-06 04:12] LABS: BASO % 0.5 % (0.0-1.0); EOS # 0.2 10*3/uL (0.0-0.4); EOS % 4.6 % (1.0-4.0); HEMATOCRIT 24.4 % (42.0-52.0); LYMPH # 1.2 10*3/uL (1.3-4.4); LYMPH % 27.9 % (27.0-41.0); MEAN CORPUSCULAR HGB CONC 29.9 g/dl (33.0-37.0); MEAN PLATELET VOLUME 10.2 fl (9.6-12.3); MONO # 0.7 10*3/uL (0.1-1.0); MONO % 17.5 % (3.0-9.0); NEUT % 49.5 % (47.0-73.0); PLATELET COUNT AUTOMATED 138 10*3/uL (130-400); RED CELL DISTRI WIDTH 22.3 % (0-14.5); WHITE BLOOD COUNT 4.1 10*3/uL (4.8-10.8)
[2023-03-06 04:13] LABS: MEAN CELL VOLUME 90.4 fl (80.0-94.0)
== END 2023-03-06 23:45 | disposition short-term general hospital (02) ==
LOC: ED 16:57
PROVIDERS: Family Medicine; Internal Medicine
DX: K85.90 Acute pancreatitis without necrosis or infection, unspecified (principal); K80.20 Calculus of gallbladder without cholecystitis without obstruction; K20.90 Esophagitis, unspecified without bleeding; R22.9 Localized swelling, mass and lump, unspecified; K27.9 Peptic ulcer, site unspecified, unspecified as acute or chronic, without hemorrhage or perforation; R42 Dizziness and giddiness; R53.83 Other fatigue; I10 Essential (primary) hypertension; K21.9 Gastro-esophageal reflux disease without esophagitis; M10.9 Gout, unspecified; I48.91 Unspecified atrial fibrillation; E11.9 Type 2 diabetes mellitus without complications; Z98.890 Other specified postprocedural states; F10.10 Alcohol abuse, uncomplicated; Z79.899 Other long term (current) drug therapy

== ENCOUNTER 2023-07-24 10:05 | Inpatient (IN) | payer OTHER ==
[~2023-07-24] VITALS: Ht 177.8 cm; Wt 60.6 kg
[2023-07-24] MEDS ORDERED: MULTIVITAMIN CONCENTRATE (IV) 10 ML,Thiamine 100 MG,FOLIC ACID 1 MG in SODIUM CHLORIDE ... IV ONE (10:10)
[2023-07-24 10:20] VITALS: BP 120/79
[2023-07-24] MEDS ORDERED: NATURE'S BLEND F1 MG PO (10:30)
[2023-07-24 10:31] LABS: BASO % 0.2 % (0.0-1.0); EOS % 0.2 % (1.0-4.0); LYMPH # 0.7 10*3/uL (1.3-4.4); LYMPH % 6.8 % (27.0-41.0); MEAN CORPUSCULAR HGB 27.5 pg (27.0-31.0); MEAN CORPUSCULAR HGB CONC 31.2 g/dl (33.0-37.0); MEAN PLATELET VOLUME 10.6 fl (9.6-12.3); MONO # 1.5 10*3/uL (0.1-1.0); MONO % 13.6 % (3.0-9.0); NEUT # 8.5 10*3/uL (2.3-7.9); NEUT % 78.7 % (47.0-73.0); PLATELET COUNT AUTOMATED 216 10*3/uL (130-400); RED BLOOD COUNT 3.75 10*6/uL (4.50-5.90); RED CELL DISTRI WIDTH 15.9 % (0-14.5); WHITE BLOOD COUNT 10.8 10*3/uL (4.8-10.8)
[2023-07-24] MEDS ORDERED: THIAMINE HCL100 MG PO (10:31)
[2023-07-24] MEDS ORDERED: THEREMS MULTI400 MCG PO (10:31)
[2023-07-24 10:51] LABS: ALKALINE PHOSPHATASE 97 U/L (46-116); BUN 7 mg/dl (9-23); CHLORIDE 97 mmol/L (98-107); LIPASE 107 U/L (12-53); POTASSIUM 3.9 mmol/L (3.4-5.1); SGPT/ALT 13 U/L (5-49); TOTAL PROTEIN 6.9 gm/dL (6.0-8.0)
[2023-07-24 10:55] LABS: ETHYL ALCOHOL < 3.0 mg/dl (<3)
[2023-07-24 11:01] LABS: ACT PARTIAL THROMBO TIME 31.3 SECONDS (20.0-32.1)
[2023-07-24] MEDS ORDERED: MAGNESIUM SULFATE 100 ML IV ONE (11:20)
[2023-07-24 13:00] VITALS: BP 120/79
[2023-07-24] MEDS ORDERED: Ceftriaxone Sodium 1 GM/10 ML SYR IV ONE (13:10)
[2023-07-24] MEDS ORDERED: IOHEXOL 9 MG/ML (IODINE) ORAL SOLUTION PO ONE (14:35)
[2023-07-24] MEDS ORDERED: DIAZEPAM 10 MG/2 ML SYR IV PRN (14:40)
[2023-07-24] MEDS ORDERED: ACETAMINOPHEN 650 MG SUPP R PRN (14:45)
[2023-07-24] MEDS ORDERED: MORPHINE Sulfate 2 MG/ML SYR IV PRN (14:45)
[2023-07-24] MEDS ORDERED: ACETAMINOPHEN 325 MG TAB PO PRN (14:45)
[2023-07-24] MEDS ORDERED: Ondansetron Hydrochloride 4 MG/2 ML VIAL IV PRN (14:45)
[2023-07-24] MEDS ORDERED: SODIUM CHLORIDE 0.9% 1,000 ML IV SCH (14:50)
[2023-07-24] MEDS ORDERED: Piperacillin Sodium/Tazobact 50 ML IV SCH (16:00)
[2023-07-24 16:40] VITALS: BP 131/70
[2023-07-24 17:15] VITALS: BP 134/83
[2023-07-24 17:35] LABS: BILIRUBIN Negative (Negative); BLOOD Negative (Negative); CLARITY Clear (Clear); COLOR Dark Yellow (Yellow); GLUCOSE Negative (Negative); KETONE 1+ (Negative); LEUKO ESTERASE Trace (Negative); NITRITE Negative (Negative)
[2023-07-24 17:44] LABS: BACTERIA 1+; MUCOUS 1+; RBC 0-2 rbc/hpf (0-2)
[2023-07-24 17:49] LABS: URINE AMPHETAMINES Negative (1000ng/ml); URINE BARBITURATES Negative (200ng/ml); URINE BENZODIAZEPINES Negative (200ng/ml); URINE CANNABINOIDS (THC) Positive (50ng/ml); URINE COCAINE Negative (300ng/ml); URINE METHADONE Negative (300ng/ml); URINE OPIATES Negative (300ng/ml); URINE PHENCYCLIDINE Negative (25ng/ml)
[2023-07-24 20:00] VITALS: BP 117/64
[2023-07-25] VITALS: BP 119/66
[2023-07-25] MEDS ORDERED: Pantoprazole Sodium 40 MG VIAL IV SCH (06:00)
[2023-07-25 06:22] LABS: HEMATOCRIT 27.8 % (42.0-52.0); MANUAL DIFF REFLEX YES; MEAN CELL VOLUME 88.8 fl (80.0-94.0); MEAN CORPUSCULAR HGB 27.2 pg (27.0-31.0); MEAN CORPUSCULAR HGB CONC 30.6 g/dl (33.0-37.0); MEAN PLATELET VOLUME 11.4 fl (9.6-12.3); PLATELET COUNT AUTOMATED 186 10*3/uL (130-400); RED BLOOD COUNT 3.13 10*6/uL (4.50-5.90); WHITE BLOOD COUNT 10.5 10*3/uL (4.8-10.8)
[2023-07-25 06:36] LABS: ALKALINE PHOSPHATASE 77 U/L (46-116); BUN 7 mg/dl (9-23); CHLORIDE 98 mmol/L (98-107); CHOLESTEROL 80 mg/dL (<200); FREE T4 1.06 ng/dl (0.89-1.76); LDL CHOLESTEROL 38 mg/dL (9-159); POTASSIUM 3.6 mmol/L (3.4-5.1); SGPT/ALT 8 U/L (5-49); TOTAL PROTEIN 5.5 gm/dL (6.0-8.0); TRIGLYCERIDES 44 mg/dl (<150)
[2023-07-25 07:07] LABS: BURR CELLS FEW; PLATELET SUFFICIENCY NORMAL (NORMAL); POLYCHROMASIA SLIGHT; TOTAL CELLS COUNTED 100 #CELLS
[2023-07-25 07:39] LABS: VITAMIN D, 25-HYDROXY 96.4 ng/mL (30-100)
[2023-07-25 08:00] VITALS: BP 134/69
[2023-07-25 12:00] VITALS: BP 127/63
[2023-07-25] MEDS ORDERED: LORazepam 1 MG TAB PO SCH (12:00)
[2023-07-25 12:16] LABS: BILIRUBIN Negative (Negative); BLOOD Negative (Negative); CLARITY Clear (Clear); COLOR Yellow (Yellow); GLUCOSE Negative (Negative); KETONE 3+ (Negative); LEUKO ESTERASE Negative (Negative); NITRITE Negative (Negative); PH 5.5 (4.5-8.0); SPECIFIC GRAVITY 1.025 (1.001-1.030)
[2023-07-25 12:22] LABS: EPITHELIAL CELLS 0-2; RBC 0-2 rbc/hpf (0-2); WBC 0-2 wbc/hpf (0-5)
[2023-07-25 16:00] VITALS: BP 126/60
[2023-07-25] MEDS ORDERED: SUCRALFATE 1 GM TAB PO SCH (16:30)
[2023-07-25 20:00] VITALS: BP 151/76
[2023-07-26] VITALS: BP 132/62
[2023-07-26] MEDS ORDERED: Pantoprazole Sodium 40 MG TAB PO SCH (06:00)
[2023-07-26 08:10] LABS: HEMOGOLBIN A1C 4.8 % (4.8-5.6)
[2023-07-26 08:45] VITALS: BP 131/73
[2023-07-26 09:00] LABS: BUN < 5 mg/dl (9-23); CHLORIDE 102 mmol/L (98-107); POTASSIUM 3.5 mmol/L (3.4-5.1)
[2023-07-26] MEDS ORDERED: Thiamine 100 MG TAB PO SCH (10:00)
[2023-07-26] MEDS ORDERED: MULTIVITAMIN 1 TAB TAB PO SCH (10:00)
[2023-07-26] MEDS ORDERED: FOLIC ACID 1 MG TAB PO SCH (10:00)
[2023-07-26 12:00] VITALS: BP 130/60
[2023-07-26] MEDS ORDERED: LORazepam 1 MG TAB PO SCH (14:00)
[2023-07-26 16:00] VITALS: BP 130/60
[2023-07-26 20:00] VITALS: BP 140/61
[2023-07-27] VITALS: BP 138/71
[2023-07-27] MEDS ORDERED: LORazepam 1 MG TAB PO PRN
[2023-07-27 08:00] VITALS: BP 119/63
[2023-07-27] MEDS ORDERED: POTASSIUM PHOSPHATE 40 MMOL in SODIUM CHLORIDE 0.9% 500 ML IV ONE (08:00)
[2023-07-27 12:00] VITALS: BP 118/74
== END 2023-07-27 14:48 | disposition home or self-care (01) | DRG 438 ==
LOC: ED 10:05 → EDHOLD 13:34 → 4E 13:34 → EDHOLD 13:35 → 4E 14:42
PROVIDERS: Internal Medicine; Registered Nurse; ADMIT Internal Medicine; ATTEND Internal Medicine
DX: K85.20 Alcohol induced acute pancreatitis without necrosis or infection (principal); E43 Unspecified severe protein-calorie malnutrition; K56.7 Ileus, unspecified; E87.1 Hypo-osmolality and hyponatremia; F10.239 Alcohol dependence with withdrawal, unspecified; Z68.1 Body mass index [BMI] 19.9 or less, adult; N30.90 Cystitis, unspecified without hematuria; K52.9 Noninfective gastroenteritis and colitis, unspecified; I48.91 Unspecified atrial fibrillation; I10 Essential (primary) hypertension; K21.9 Gastro-esophageal reflux disease without esophagitis; F12.90 Cannabis use, unspecified, uncomplicated; E83.42 Hypomagnesemia; Z80.1 Family history of malignant neoplasm of trachea, bronchus and lung; Z79.899 Other long term (current) drug therapy

== ENCOUNTER 2023-08-10 13:21 | Emergency (ER) | payer OTHER ==
[~2023-08-10] VITALS: Wt 63.5 kg
[~2023-08-10 13:21] MED LIST changes: +THEREMS MULTI400 MCG PO; +THIAMINE HCL100 MG PO
[2023-08-10] MEDS ORDERED: Tdap Vaccine 0.5 ML SYR (Adult Vaccine) IM ONE (13:40)
[2023-08-10] MEDS ORDERED: Bacitracin Zinc 14 GM TUBE T ONE (13:40)
[2023-08-10] MEDS ORDERED: HYDROCODONE-AC1 EAC1 PO (16:10)
[2023-08-11] MEDS ORDERED: PERCOCET 5-3251 EACH PO (08:00)
== END 2023-08-10 16:25 | disposition home or self-care (01) ==
LOC: ED 13:21
DX: S20.211A Contusion of right front wall of thorax, initial encounter (principal); V09.9XXA Pedestrian injured in unspecified transport accident, initial encounter; Y93.89 Activity, other specified; Y92.410 Unspecified street and highway as the place of occurrence of the external cause; Y99.8 Other external cause status; E83.42 Hypomagnesemia; E87.1 Hypo-osmolality and hyponatremia; D64.9 Anemia, unspecified; K21.9 Gastro-esophageal reflux disease without esophagitis; I10 Essential (primary) hypertension; M10.9 Gout, unspecified; F12.90 Cannabis use, unspecified, uncomplicated; I48.91 Unspecified atrial fibrillation; Z98.890 Other specified postprocedural states

== ENCOUNTER 2023-12-04 00:38 | Inpatient (IN) | payer OTHER ==
[~2023-12-04] VITALS: Ht 180.3 cm; Wt 69.9 kg
[~2023-12-04 00:38] MED LIST changes: +PERCOCET 5-3251 EACH PO
[2023-12-04 01:07] LABS: HEMATOCRIT 34.9 % (42.0-52.0); MEAN CELL VOLUME 78.8 fl (80.0-94.0); MEAN CORPUSCULAR HGB 25.5 pg (27.0-31.0); MEAN CORPUSCULAR HGB CONC 32.4 g/dl (33.0-37.0); MEAN PLATELET VOLUME 10.6 fl (9.6-12.3); PLATELET COUNT AUTOMATED 265 10*3/uL (130-400); RED BLOOD COUNT 4.43 10*6/uL (4.50-5.90); RED CELL DISTRI WIDTH 16.8 % (0-14.5); WHITE BLOOD COUNT 35.4 10*3/uL (4.8-10.8)
[2023-12-04 01:08] LABS: MANUAL DIFF REFLEX YES
[2023-12-04 01:29] LABS: ALKALINE PHOSPHATASE 81 U/L (46-116); BUN 24 mg/dl (9-23); CHLORIDE 91 mmol/L (98-107); LIPASE 363 U/L (12-53); POTASSIUM 5.2 mmol/L (3.4-5.1); SGPT/ALT < 7 U/L (5-49); TOTAL PROTEIN 6.6 gm/dL (6.0-8.0)
[2023-12-04 01:39] LABS: PLATELET SUFFICIENCY NORMAL (NORMAL); ROULEAUX SLIGHT; TOTAL CELLS COUNTED 100 #CELLS
[2023-12-04 01:40] LABS: OVALOCYTES FEW
[2023-12-04 02:24] VITALS: BP 157/48
[2023-12-04] MEDS ORDERED: SODIUM CHLORIDE 0.9% 1,000 ML IV ONE ×3 (02:40→14:00)
[2023-12-04] MEDS ORDERED: Ondansetron Hydrochloride 4 MG/2 ML VIAL IV ONE ×2 (02:45→22:20)
[2023-12-04] MEDS ORDERED: Piperacillin Sodium/Tazobact 50 ML IV ONE (02:45)
[2023-12-04 06:47] VITALS: BP 109/66
[2023-12-04] MEDS ORDERED: Piperacillin Sodium/Tazobact 2.25 GM in SODIUM CHLORIDE 0.9% 50 ML IV SCH (12:00)
[2023-12-04] MEDS ORDERED: LORazepam 0.5 MG TAB PO ONE (12:05)
[2023-12-04 20:32] VITALS: BP 117/68
[2023-12-04] MEDS ORDERED: LORazepam 2 MG/ML VIAL IV ONE (22:20)
[2023-12-04 22:53] LABS: POTASSIUM 3.7 mmol/L (3.4-5.1)
[2023-12-05] VITALS (34 sets, daily range): BP systolic 94–131; BP diastolic 54–85
[2023-12-05] MEDS ORDERED: Piperacillin Sodium/Tazobact 2.25 GM in SODIUM CHLORIDE 0.9% 50 ML IV SCH ×2 (02:00→20:00)
[2023-12-05] MEDS ORDERED: SODIUM CHLORIDE 0.9% 1,000 ML IV ONE ×2 (02:00→02:17)
[2023-12-05] MEDS ORDERED: LORazepam 2 MG/ML VIAL IV ONE ×3 (02:00→14:15)
[2023-12-05] MEDS ORDERED: LORazepam 2 MG/ML VIAL ONE (02:17)
[2023-12-05] MEDS ORDERED: Diltiazem Hydrochloride 25 MG/5 ML VIAL IV ONE ×3 (03:50→07:50)
[2023-12-05 08:11] LABS: MEAN CELL VOLUME 80.6 fl (80.0-94.0); MEAN CORPUSCULAR HGB 25.9 pg (27.0-31.0); MEAN CORPUSCULAR HGB CONC 32.2 g/dl (33.0-37.0); MEAN PLATELET VOLUME 10.5 fl (9.6-12.3); PLATELET COUNT AUTOMATED 271 10*3/uL (130-400); RED BLOOD COUNT 3.97 10*6/uL (4.50-5.90); RED CELL DISTRI WIDTH 17.1 % (0-14.5); WHITE BLOOD COUNT 24.6 10*3/uL (4.8-10.8)
[2023-12-05 08:12] LABS: MANUAL DIFF REFLEX YES
[2023-12-05 08:32] LABS: BURR CELLS FEW; PLATELET SUFFICIENCY NORMAL (NORMAL); TOTAL CELLS COUNTED 100 #CELLS
[2023-12-05 08:33] LABS: MICROCYTOSIS SLIGHT
[2023-12-05 08:39] LABS: POTASSIUM 4.2 mmol/L (3.4-5.1)
[2023-12-05] MEDS ORDERED: Diltiazem Hydrochloride 125 ML IV SCH (08:40)
[2023-12-05 14:18] LABS: BILIRUBIN Negative (Negative); BLOOD 3+ (Negative); CLARITY Cloudy (Clear); COLOR Yellow (Yellow); GLUCOSE Negative (Negative); KETONE Trace (Negative); LEUKO ESTERASE Negative (Negative); NITRITE Negative (Negative); PH 5.5 (4.5-8.0); UROBILINOGEN 0.2 E.U./dl (0.0-1.0)
[2023-12-05 14:37] LABS: BACTERIA 2+; RBC 41-50 rbc/hpf (0-2)
[2023-12-05] MEDS ORDERED: SUCRALFATE 1 GM TAB PO SCH (22:00)
[2023-12-05] MEDS ORDERED: SODIUM CHLORIDE 0.9% 1,000 ML IV SCH (22:45)
[2023-12-06] VITALS (7 sets, daily range): BP systolic 109–142; BP diastolic 62–78
[2023-12-06 06:19] LABS: HEMATOCRIT 28.2 % (42.0-52.0); MANUAL DIFF REFLEX YES; MEAN CORPUSCULAR HGB 25.9 pg (27.0-31.0); MEAN CORPUSCULAR HGB CONC 31.9 g/dl (33.0-37.0); MEAN PLATELET VOLUME 10.7 fl (9.6-12.3); PLATELET COUNT AUTOMATED 264 10*3/uL (130-400); RED BLOOD COUNT 3.48 10*6/uL (4.50-5.90); RED CELL DISTRI WIDTH 16.9 % (0-14.5); WHITE BLOOD COUNT 17.4 10*3/uL (4.8-10.8)
[2023-12-06 06:40] LABS: POTASSIUM 3.5 mmol/L (3.4-5.1)
[2023-12-06] MEDS ORDERED: HEEL PROTECTOR DEVICE ONE (06:45)
[2023-12-06] MEDS ORDERED: FOAM BANDAGE HEEL T ONE (06:45)
[2023-12-06] MEDS ORDERED: FOAM BANDAGE 1 EACH BANDAGE T ONE (06:45)
[2023-12-06 07:16] LABS: BURR CELLS FEW; OVALOCYTES FEW; PLATELET SUFFICIENCY NORMAL (NORMAL); POLYCHROMASIA SLIGHT; SCHISTOCYTES FEW; TARGET CELLS FEW; TOTAL CELLS COUNTED 100 #CELLS; TOXIC GRANULATION SLIGHT
[2023-12-06] MEDS ORDERED: Pantoprazole Sodium 40 MG TAB PO SCH (07:30)
[2023-12-06] MEDS ORDERED: Thiamine 100 MG TAB PO SCH (10:00)
== END 2023-12-06 15:14 | DRG 871 ==
LOC: ED 00:38 → 4E 12-05 17:36 → EDHOLD 12-05 17:36 → 4E 12-05 20:07
PROVIDERS: Emergency Medicine; Internal Medicine; ADMIT Internal Medicine; ATTEND Internal Medicine
DX: A41.9 Sepsis, unspecified organism (principal); E43 Unspecified severe protein-calorie malnutrition; K85.80 Other acute pancreatitis without necrosis or infection; N17.9 Acute kidney failure, unspecified; E87.1 Hypo-osmolality and hyponatremia; Q45.3 Other congenital malformations of pancreas and pancreatic duct; K86.3 Pseudocyst of pancreas; K56.7 Ileus, unspecified; Z66 Do not resuscitate; K76.82 Hepatic encephalopathy; N18.9 Chronic kidney disease, unspecified; K21.00 Gastro-esophageal reflux disease with esophagitis, without bleeding; M10.9 Gout, unspecified; I48.0 Paroxysmal atrial fibrillation; K29.70 Gastritis, unspecified, without bleeding; I12.9 Hypertensive chronic kidney disease with stage 1 through stage 4 chronic kidney disease, or unspecified chronic kidney disease; K80.50 Calculus of bile duct without cholangitis or cholecystitis without obstruction; E83.42 Hypomagnesemia; F10.20 Alcohol dependence, uncomplicated; K70.31 Alcoholic cirrhosis of liver with ascites; K52.9 Noninfective gastroenteritis and colitis, unspecified; N30.90 Cystitis, unspecified without hematuria; F12.90 Cannabis use, unspecified, uncomplicated; R62.7 Adult failure to thrive; I08.1 Rheumatic disorders of both mitral and tricuspid valves; D64.9 Anemia, unspecified; Z51.5 Encounter for palliative care; Z80.1 Family history of malignant neoplasm of trachea, bronchus and lung; Z79.899 Other long term (current) drug therapy; Z68.20 Body mass index [BMI] 20.0-20.9, adult